=== PATIENT | male | born 1960 | race Caucasian/White ===

== ENCOUNTER 2017-01-25 14:44 | Inpatient (IN) ==
--- NOTE | 2017-01-25 15:56 | Emergency Department Note ---
Disposition Clinical Impression: Suicidal ideation Depression Qualifiers: Depression Type: unspecified Qualified Code(s): F32.9 - Major depressive disorder, single episode, unspecified Disposition: Admitted As Inpatient Psych HPI - General Chief Complaint: ED Psychiatric Symptoms Stated Complaint: SI, Depression Time Seen by Provider: 01/25/17 15:51 Source: patient Mode of arrival: ambulatory Limitations: no limitations Nursing Notes Reviewed: Yes Vital Signs Reviewed: Yes - History of Present Illness HPI Narrative: 56-year-old male who comes in complaining of depression and suicidal ideation. Patient does have a history of depression and he stopped his medications for 5 years ago. Patient had been on Xanax also for sleep and hasn't had any of that for about 5 months he says. Says he feels depressed with suicidal ideation. Pt complaint: suicidal ideation, feels depressed If medical clearance, reason: psychiatric condition Onset (ago): day(s) Duration: constant History of similar episodes: Yes Improves with: none Worsens with: none Context: significant life stressor Alleged intoxication: No Associated Psychiatric Symptoms: depression, suicidal ideation Associated symptoms: Reports: denies other symptoms Traumatic symptoms: denies traumatic injury Treatments prior to arrival: none - Related Data Home Medications Medication Instructions Recorded Confirmed Albuterol Sulfate [Proair Hfa] 2 puff IH Q4H PRN 01/25/17 01/25/17 Gabapentin [Neurontin] 600 mg PO TID 01/25/17 01/25/17 Omeprazole [PriLOSEC] 20 mg PO DAILY PRN 01/25/17 01/25/17 Oxycodone HCl/Acetaminophen 1 each PO BID PRN 01/25/17 01/25/17 [Percocet 10-325 mg Tablet] Previous Rx's Medication Instructions Recorded FLUoxetine HCl [Prozac] 20 mg PO DAILY #30 capsule 01/27/17 Allergies Allergy/AdvReac Type Severity Reaction Status Date / Time acetaminophen [From Vicodin] Allergy Nausea Verified 01/25/17 15:01 celecoxib [From Celebrex] Allergy Hives Verified 01/25/17 15:01 hydrocodone [From Vicodin] Allergy Nausea Verified 01/25/17 15:01 Constitutional: Denies: fever, chills, weakness, weight change Eyes: Denies: eye pain, eye discharge, vision change ENT ED: Denies: ear pain, throat pain, dental pain, hearing loss, epistaxis, congestion, dysphagia Cardiovascular: Denies: chest pain, palpitations, dyspnea on exertion, edema, syncope Respiratory: Denies: cough, dyspnea, wheezes, hemoptysis, stridor Gastrointestinal: Denies: abdominal pain, nausea, vomiting, diarrhea, constipation, hematemesis, melena, hematochezia Genitourinary: Denies: urgency, dysuria, frequency, hematuria Musculoskeletal: Denies: back pain, neck pain, arthralgia, myalgia Integumentary: Denies: rash, abrasion, lesions Neurological: Denies: headache, weakness, numbness, paresthesias, confusion, abnormal gait, vertigo Psychiatric: Reports: depression, suicidal thoughts. Denies: anxiety, homicidal thoughts, auditory hallucinations, visual hallucinations Endocrine: Denies: fatigue Hematological/Lymphatic: Denies: easy bleeding, easy bruising Allergic/Immunologic: Denies: facial swelling, urticaria Past Medical History - Past Medical History Medical history: Reports: GERD, hyperlipidemia, hypertension Surgical history: Reports: herniorrhaphy, orthopedic, other (Shoulder surgery) Psychiatric history: Reports: no psych history - Social History Smoking Status: Current every day smoker Smokeless Tobacco Status: No Alcohol use: Reports: none Drug use: Reports: none Physical Exam - General Limitations: no limitations General appearance: alert - Head Head exam: atraumatic, normocephalic, normal inspection - Eye Eye exam: Present: normal appearance, PERRL, EOMI - ENT ENT exam: normal exam, normal oropharynx, mucous membranes moist - Neck Neck exam: Present: normal inspection, full ROM, trachea midline - Chest Chest inspection: Present: normal inspection, symmetric chest wall rise - Cardiovascular Cardiovascular exam: Present: regular rate, normal rhythm, normal heart sounds - Abdominal Exam Abdominal exam: Present: soft, Non-Tender. Absent: tenderness, distention, guarding, rebound, rigidity - Extremities Exam Extremities exam: Present: normal inspection, full ROM. Absent: tenderness, pedal edema - Expanded Lower Extremity Exam Neurovascular/Tendon exam: Absent: motor deficit, sensory deficit, tendon deficit Gait: observed and normal - Back Exam Back exam: Present: normal inspection, full ROM. Absent: tenderness - Neurological Exam Neurological exam: Present: alert, oriented X3 - Psychiatric Psychiatric exam: Present: normal affect, normal mood - Skin Skin exam: Present: warm, dry, intact, normal color Course Vital Signs Temperature 98.1 F 01/25/17 14:57 Pulse Rate 62 01/25/17 14:57 Respiratory Rate 16 01/25/17 14:57 Blood Pressure 157/84 01/25/17 14:57 O2 Sat by Pulse Oximetry 96 01/25/17 14:57 Temperature 98.7 F 01/27/17 08:46 Pulse Rate 67 01/27/17 08:46 Respiratory Rate 16 01/27/17 08:46 Blood Pressure 107/75 01/27/17 08:46 O2 Sat by Pulse Oximetry 97 01/25/17 16:17 Oxygen Delivery Oxygen Delivery Room Air Psych - Lab Data Result diagrams: 01/25/17 16:09 01/25/17 16:09 Lab Results 01/25/17 01/25/17 01/25/17 Range/Units 16:00 16:00 16:09 WBC 8.8 (4.3-11.1) K/mcL RBC 5.03 (4.19-5.50) M/mcL Hgb 15.5 (12.9-16.9) g/dL Hct 45.9 (37.5-50.1) % MCV 91.3 (83.0-100.0) fL MCH 30.8 (28.0-33.3) pg MCHC 33.8 (31.6-35.5) g/dL RDW 12.1 (11.5-14.5) % Plt Count 273 (140-400) K/mcL MPV 10.4 (9.4-12.4) fL Immature Gran % 0.3 (0-4) % Seg Neutrophils % 50.6 % Lymphocytes % 36.0 % Monocytes % 9.5 % Eosinophils % 2.8 % Basophils % 0.8 % Neutrophils # 4.5 (1.6-8.9) K/mcL Lymphocytes # 3.2 (0.6-4.6) K/mcL Monocytes # 0.8 (0.0-1.3) K/mcL Eosinophils # 0.3 (0.0-0.6) K/mcL Basophils # 0.1 (0.0-0.2) K/mcL Sodium (136-145) mEq/L Potassium (3.5-4.5) mEq/L Chloride (98-109) mEq/L Carbon Dioxide (19-29) mEq/L BUN (8-26) mg/dL Creatinine (0.72-1.25) mg/dL Est GFR ( Amer) (> 60) Est GFR (Non-Af Amer) (> 60) BUN/Creatinine Ratio (6-26) Glucose (70-99) mg/dL Calculated Osmolality (280-300) Calcium (8.6-10.8) mg/dL Urine Color Yellow (Yellow) Urine Clarity Clear (Clear) Urine pH 6.0 (5.0-8.0) pH Units Ur Specific [place] 1.028 H (1.010-1.025) Urine Protein Negative (Neg-Trace) mg/dL Urine Glucose (UA) 100 H (Normal) mg/dL Urine Ketones Negative (Negative) mg/dL Urine Blood Negative (Negative) Urine Nitrite Negative (Negative) Urine Bilirubin Negative (Negative) Urine Urobilinogen Normal (Normal) mg/dL Ur Leukocyte Esterase Negative (Negative) Salicylates (15-30) mg/dL Urine Opiates Screen Positive H (Yzwpoz=015) ng/mL Acetaminophen (10-30) mcg/mL Ur Barbiturates Screen Negative (Mzmibt=284) ng/mL Ur Phencyclidine Scrn Negative (Cutoff=25) ng/mL Ur Amphetamines Screen Negative (Hxoebj=0910) ng/mL U Benzodiazepines Scrn Negative (Fuvqnu=027) ng/mL Urine Cocaine Screen Negative (Cutoff= 300) ng/mL U Marijuana (THC) Screen Negative (Cutoff = 50) ng/mL Ethyl Alcohol (0-10) mg/dL 01/25/17 Range/Units 16:09 WBC (4.3-11.1) K/mcL RBC (4.19-5.50) M/mcL Hgb (12.9-16.9) g/dL Hct (37.5-50.1) % MCV (83.0-100.0) fL MCH (28.0-33.3) pg MCHC (31.6-35.5) g/dL RDW (11.5-14.5) % Plt Count (140-400) K/mcL MPV (9.4-12.4) fL Immature Gran % (0-4) % Seg Neutrophils % % Lymphocytes % % Monocytes % % Eosinophils % % Basophils % % Neutrophils # (1.6-8.9) K/mcL Lymphocytes # (0.6-4.6) K/mcL Monocytes # (0.0-1.3) K/mcL Eosinophils # (0.0-0.6) K/mcL Basophils # (0.0-0.2) K/mcL Sodium 138 (136-145) mEq/L Potassium 4.1 (3.5-4.5) mEq/L Chloride 103 (98-109) mEq/L Carbon Dioxide 26 (19-29) mEq/L BUN 12 (8-26) mg/dL Creatinine 1.02 (0.72-1.25) mg/dL Est GFR ( Amer) > 60 (> 60) Est GFR (Non-Af Amer) > 60 (> 60) BUN/Creatinine Ratio 12 (6-26) Glucose 103 H (70-99) mg/dL Calculated Osmolality 286 (280-300) Calcium 8.9 (8.6-10.8) mg/dL Urine Color (Yellow) Urine Clarity (Clear) Urine pH (5.0-8.0) pH Units Ur Specific [place] (1.010-1.025) Urine Protein (Neg-Trace) mg/dL Urine Glucose (UA) (Normal) mg/dL Urine Ketones (Negative) mg/dL Urine Blood (Negative) Urine Nitrite (Negative) Urine Bilirubin (Negative) Urine Urobilinogen (Normal) mg/dL Ur Leukocyte Esterase (Negative) Salicylates < 5.0 L (15-30) mg/dL Urine Opiates Screen (Keqmhx=026) ng/mL Acetaminophen 4.0 L (10-30) mcg/mL Ur Barbiturates Screen (Fwtowx=704) ng/mL Ur Phencyclidine Scrn (Cutoff=25) ng/mL Ur Amphetamines Screen (Temqwh=2569) ng/mL U Benzodiazepines Scrn (Fpfywd=994) ng/mL Urine Cocaine Screen (Cutoff= 300) ng/mL U Marijuana (THC) Screen (Cutoff = 50) ng/mL Ethyl Alcohol < 10 (0-10) mg/dL Psychiatric Medical Clearance - Medical Clearance Checklist Medical History: No Social History Section defined Current Vitals: Last Vital Signs Temp 98.7 F 01/27/17 08:46 Pulse 67 01/27/17 08:46 Resp 16 01/27/17 08:46 BP 107/75 01/27/17 08:46 Pulse Ox 97 01/25/17 16:17 Abnormal Labs: Abnormal lab results Glucose 103 mg/dL (70-99) H 01/25/17 16:09 Ur Specific [place] 1.028 (1.010-1.025) H 01/25/17 16:00 Urine Glucose (UA) 100 mg/dL (Normal) H 01/25/17 16:00 Salicylates < 5.0 mg/dL (15-30) L 01/25/17 16:09 Urine Opiates Screen Positive ng/mL (Feaalz=200) H 01/25/17 16:00 Acetaminophen 4.0 mcg/mL (10-30) L 01/25/17 16:09 Statement of Medical Clearance: I have evaluated the patient, reviewed diagnostic information, and certify that the patient's medical condition is sufficiently stable that transfer to the psychiatric unit does not pose a significant risk of deterioration.
[2017-01-25 16:07] LABS: Bilirubin,Urine Negative (Negative); Blood,Urine Negative (Negative); Clarity,Urine Clear (Clear); Color,Urine Yellow (Yellow); Glucose,Urine (UA) 100 mg/dL (Normal); Ketones,Urine Negative (Negative); Leukocyte Esterase,Urine Negative (Negative); Nitrite,Urine Negative (Negative); Protein,Urine Negative (Neg-Trace); Specific Gravity,Urine 1.028 (1.010-1.025); Urobilinogen,Urine Normal (Normal)
[2017-01-25 16:16] LABS: Amphetamine Screen,Urine Negative ng/mL (Cutoff=1000); Barbiturate Screen,Urine Negative ng/mL (Cutoff=200); Benzodiazepines Screen,Urine Negative ng/mL (Cutoff=200); Cannabinoid Screen,Urine Negative ng/mL (Cutoff = 50); Cocaine Screen,Urine Negative ng/mL (Cutoff= 300); Opiate Screen,Urine Positive ng/mL (Cutoff=300); Phencyclidine Screen,Urine Negative ng/mL (Cutoff=25)
[2017-01-25 16:32] LABS: Basophils # 0.1 K/mcL (0.0-0.2); Basophils % 0.8 %; Eosinophils # 0.3 K/mcL (0.0-0.6); Eosinophils % 2.8 %; Hematocrit 45.9 % (37.5-50.1); Hemoglobin 15.5 g/dL (12.9-16.9); Immature Granulocytes % 0.3 % (0-4); Lymphocytes # 3.2 K/mcL (0.6-4.6); Mean Corpuscular HGB Conc 33.8 g/dL (31.6-35.5); Mean Corpuscular Hemoglobin 30.8 pg (28.0-33.3); Mean Corpuscular Volume 91.3 fL (83.0-100.0); Mean Platelet Volume 10.4 fL (9.4-12.4); Monocytes # 0.8 K/mcL (0.0-1.3); Monocytes % 9.5 %; Neutrophils # 4.5 K/mcL (1.6-8.9); Platelet Count 273 K/mcL (140-400); Red Blood Count 5.03 M/mcL (4.19-5.50); Red Cell Distribution Width 12.1 % (11.5-14.5); Segmented Neutrophils % 50.6 %
[2017-01-25 16:33] LABS: BUN/Creatinine Ratio 12 (6-26); Blood Urea Nitrogen 12 mg/dL (8-26); Calcium 8.9 mg/dL (8.6-10.8); Carbon Dioxide 26 mEq/L (19-29); Chloride 103 mEq/L (98-109); Glucose 103 mg/dL (70-99); Osmolality,Calculated 286 (280-300); Potassium 4.1 mEq/L (3.5-4.5); Sodium 138 mEq/L (136-145); eGFR For African Americans > 60 (> 60); eGFR For Non-African Americans > 60 (> 60)
[2017-01-25 16:34] LABS: Ethanol < 10 mg/dL (0-10); Salicylate < 5.0 mg/dL (15-30)
[2017-01-25] MEDS ORDERED: hydrOXYzine pamoate 25 MG CAPSULE PO PRN (20:01)
[2017-01-25] MEDS ORDERED: MOM Conc 10 ML UD.LIQ PO PRN (20:01)
[2017-01-25] MEDS ORDERED: Mag Hydrox/Al Hydrox/Simeth 30 ML UDC PO PRN (20:01)
[2017-01-25] MEDS ORDERED: Haloperidol Lactate 5 MG/ML VIAL IM PRN (20:01)
[2017-01-25] MEDS ORDERED: *HR* LORazepam 1 MG TABLET PO PRN (20:01)
[2017-01-25] MEDS ORDERED: *HR* LORazepam 2 MG/ML VIAL IM PRN (20:01)
[2017-01-25] MEDS: traZODone 50 MG TABLET PO PRN (21:15)
[2017-01-25] MEDS: Gabapentin 300 MG CAPSULE PO SCH (21:16)
[2017-01-25] MEDS: *HR* OxyCODONE/APAP 10/325 TABLET PO PRN (21:16)
[2017-01-26] MEDS: Gabapentin 300 MG CAPSULE PO SCH ×3 (08:18→20:43)
--- NOTE | 2017-01-26 10:09 | Psychiatry History & Physical ---
Date of Encounter: 01/26/17 Time of Encounter: 10:05 History of Present Illness Patient Stated Chief Complaint: Suicidal ideation Medicare Admission Attestation: For traditional Medicare patients the provided hospital inpatient services are reasonable and necessary and in the case of services not specified as inpatient -only under 42 CFR 419.22 (n), that they are appropriately provided as inpatient services in accordance 42 CFR 412.3. For Critical Access Hospital the patient may reasonably be expected to be discharged or transferred to a hospital within 96 hours after admission to the Critical Access Hospital. Admitted From: Emergency Dept History of Present Illness: Mr. Valerio is a 56 year old male admitted from the emergency room for depression and suicidal ideation. Patient is stressed out by financial problems and unemployment and living situation with family. He was hospitalized in 2009 for similar episodes but did not follow-up or take medication afterwards. Patient complained of poor sleep, depressed moods, poor motivation, low energy and feeling of hopelessness and suicidal ideation. 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 HE DENIES ANY USE OF DRUGS OR ALCOHOL AND SHE SMOKE 1 PACK PER DAY CIGARETTES AND SEVERAL CUPS OF COFFEE DAILY. Past Med Surg Social Fam HX - Past Medical History Medical history: arthritis, GERD, hyperlipidemia, hypertension - Past Psychiatric History Psychiatric history: Reports: depression, previous psychiatric hospitalization Past psychiatric history details: Psychiatric hospitalization at [facility] from December 04 2009 to 12/08/2009. Diagnosis major depressive disorder single episode severe with psychotic features discharged on Klonopin , citalopram and trazodone Family psychiatric history: Unknown Family History of Suicide: Unknown - Past Surgical History Surgical History: herniorrhaphy, orthopedic, other - Social History Smoking Status: Current every day smoker Smokeless Tobacco Status: No Alcohol use: none Drug use: none Medications & Allergies Albuterol Sulfate [Proair Hfa] 2 puff IH Q4H PRN 01/25/17 [History] Gabapentin [Neurontin] 600 mg PO TID 01/25/17 [History] Omeprazole [PriLOSEC] 20 mg PO DAILY PRN 01/25/17 [History] Oxycodone HCl/Acetaminophen [Percocet 10-325 mg Tablet] 1 each PO BID PRN [History] Allergies acetaminophen [From Vicodin] Allergy (Verified 01/25/17 15:01) Nausea celecoxib [From Celebrex] Allergy (Verified 01/25/17 15:01) Hives hydrocodone [From Vicodin] Allergy (Verified 01/25/17 15:01) Nausea Review of Systems Psychiatric: Reports: depression, suicidal ideation Mental Status Exam Patient orientation: Yes Person, Yes Time, Yes Place Level of alertness: Alert Patient appearance: Appropriate, Disheveled, Average Behavior: calm, cooperative Psychomotor activity: Normal Eye contact: Maintains Eye Contact Mood description: Depressed, Anxious Affect description: congruent with mood, constricted, anxious Speech pattern: Normal rate, Normal rhythm, Normal tone, Appropriate, Limited Speech volume: Normal Thought process: Linear, Goal Oriented Thought content: Yes Suicidal ideation, No Homicidal ideation, No Overt delusions Perceptual disturbances: No Auditory hallucinations, No Visual hallucinations Attention span: Capable of Sustained Attention Memory description: Grossly Intact Patient reliability: Reliable Historian Intelligence estimate: Average Judgment: Limited Insight: Partial Results - Vital Signs Vital signs: Temp Pulse Resp BP Pulse Ox 98.2 F 53 16 97/67 97 01/26/17 08:12 01/26/17 08:12 01/26/17 08:12 01/26/17 08:12 01/25/17 16:17 - Labs Labs: Laboratory Last Values WBC 8.8 K/mcL (4.3-11.1) 01/25/17 16:09 RBC 5.03 M/mcL (4.19-5.50) 01/25/17 16:09 Hgb 15.5 g/dL (12.9-16.9) 01/25/17 16:09 Hct 45.9 % (37.5-50.1) 01/25/17 16:09 MCV 91.3 fL (83.0-100.0) 01/25/17 16:09 MCH 30.8 pg (28.0-33.3) 01/25/17 16:09 MCHC 33.8 g/dL (31.6-35.5) 01/25/17 16:09 RDW 12.1 % (11.5-14.5) 01/25/17 16:09 Plt Count 273 K/mcL (140-400) 01/25/17 16:09 MPV 10.4 fL (9.4-12.4) 01/25/17 16:09 Immature Gran % 0.3 % (0-4) 01/25/17 16:09 Seg Neutrophils % 50.6 % 01/25/17 16:09 Lymphocytes % 36.0 % 01/25/17 16:09 Monocytes % 9.5 % 01/25/17 16:09 Eosinophils % 2.8 % 01/25/17 16:09 Basophils % 0.8 % 01/25/17 16:09 Neutrophils # 4.5 K/mcL (1.6-8.9) 01/25/17 16:09 Lymphocytes # 3.2 K/mcL (0.6-4.6) 01/25/17 16:09 Monocytes # 0.8 K/mcL (0.0-1.3) 01/25/17 16:09 Eosinophils # 0.3 K/mcL (0.0-0.6) 01/25/17 16:09 Basophils # 0.1 K/mcL (0.0-0.2) 01/25/17 16:09 Sodium 138 mEq/L (136-145) 01/25/17 16:09 Potassium 4.1 mEq/L (3.5-4.5) 01/25/17 16:09 Chloride 103 mEq/L (98-109) 01/25/17 16:09 Carbon Dioxide 26 mEq/L (19-29) 01/25/17 16:09 BUN 12 mg/dL (8-26) 01/25/17 16:09 Creatinine 1.02 mg/dL (0.72-1.25) 01/25/17 16:09 Est GFR ( Amer) > 60 (> 60) 01/25/17 16:09 Est GFR (Non-Af Amer) > 60 (> 60) 01/25/17 16:09 BUN/Creatinine Ratio 12 (6-26) 01/25/17 16:09 Glucose 103 mg/dL (70-99) H 01/25/17 16:09 Calculated Osmolality 286 (280-300) 01/25/17 16:09 Calcium 8.9 mg/dL (8.6-10.8) 01/25/17 16:09 Urine Color Yellow (Yellow) 01/25/17 16:00 Urine Clarity Clear (Clear) 01/25/17 16:00 Urine pH 6.0 pH Units (5.0-8.0) 01/25/17 16:00 Ur Specific [place] 1.028 (1.010-1.025) H 01/25/17 16:00 Urine Protein Negative mg/dL (Neg-Trace) 01/25/17 16:00 Urine Glucose (UA) 100 mg/dL (Normal) H 01/25/17 16:00 Urine Ketones Negative mg/dL (Negative) 01/25/17 16:00 Urine Blood Negative (Negative) 01/25/17 16:00 Urine Nitrite Negative (Negative) 01/25/17 16:00 Urine Bilirubin Negative (Negative) 01/25/17 16:00 Urine Urobilinogen Normal mg/dL (Normal) 01/25/17 16:00 Ur Leukocyte Esterase Negative (Negative) 01/25/17 16:00 Salicylates < 5.0 mg/dL (15-30) L 01/25/17 16:09 Urine Opiates Screen Positive ng/mL (Wdmjlr=190) H 01/25/17 16:00 Acetaminophen 4.0 mcg/mL (10-30) L 01/25/17 16:09 Ur Barbiturates Screen Negative ng/mL (Fmcumx=755) 01/25/17 16:00 Ur Phencyclidine Scrn Negative ng/mL (Cutoff=25) 01/25/17 16:00 Ur Amphetamines Screen Negative ng/mL (Mkrkgh=8268) 01/25/17 16:00 U Benzodiazepines Scrn Negative ng/mL (Jtzjyr=910) 01/25/17 16:00 Urine Cocaine Screen Negative ng/mL (Cutoff= 300) 01/25/17 16:00 U Marijuana (THC) Screen Negative ng/mL (Cutoff = 50) 01/25/17 16:00 Ethyl Alcohol < 10 mg/dL (0-10) 01/25/17 16:09 Assessment and Plan (1) Depression, major, recurrent, moderate Current visit: Yes Status: Acute Plan: Admit inpatient for safety and stabilization, Close observation, Suicide Precautions per unit protocol, Encourage participation in unit milieu, Group Therapy, Monitor sleep, Monitor appetite Additional Plan: We will start patient on fluoxetine 20 mg daily and Klonopin 1 mg at bedtime. Benefits and side effect were discussed with the patient and he is agreeable. We will monitor his response. Risks, benefits, side effects, alternatives discussed w/pt: Yes Patient agreeable to treatment: Yes Estimated Length of Stay (Days): 5
[2017-01-26] MEDS: *HR* OxyCODONE/APAP 10/325 TABLET PO PRN ×2 (10:28→20:46)
[2017-01-26] MEDS: FLUoxetine 20 MG CAPSULE PO SCH (11:04)
[2017-01-26] MEDS: traZODone 50 MG TABLET PO PRN (20:43)
[2017-01-26] MEDS ORDERED: clonazePAM 1 MG TABLET PO SCH (21:00)
[2017-01-27] MEDS: FLUoxetine 20 MG CAPSULE PO SCH (08:12)
[2017-01-27] MEDS: Gabapentin 300 MG CAPSULE PO SCH (08:13)
[2017-01-27 08:46] VITALS: BP 107/75
[2017-01-27] MEDS: *HR* OxyCODONE/APAP 10/325 TABLET PO PRN (09:43)
--- NOTE | 2017-01-27 12:35 | Discharge Summary ---
Date of Encounter: 01/27/17 Time of Encounter: 12:32 Diagnosis - Discharge Diagnosis (1) Depression, major, recurrent, moderate Priority: Primary Status: Acute Medications - Discharge Medications Prescriptions: FLUoxetine HCl [Prozac] 20 mg PO DAILY #30 capsule Albuterol Sulfate [Proair Hfa] 2 puff IH Q4H PRN 01/25/17 [History] Gabapentin [Neurontin] 600 mg PO TID 01/25/17 [History] Omeprazole [PriLOSEC] 20 mg PO DAILY PRN 01/25/17 [History] Oxycodone HCl/Acetaminophen [Percocet 10-325 mg Tablet] 1 each PO BID PRN [History] FLUoxetine HCl [Prozac] 20 mg PO DAILY #30 capsule 01/27/17 [Rx] Allergies acetaminophen [From Vicodin] Allergy (Verified 01/25/17 15:01) Nausea celecoxib [From Celebrex] Allergy (Verified 01/25/17 15:01) Hives hydrocodone [From Vicodin] Allergy (Verified 01/25/17 15:01) Nausea Provider Date of admission: 01/25/17 19:31 Primary care physician: PCP NO Discharging clinician: Roberto Thacker Assessment and Plan - Patient/Caregiver Discharge Instructions Activity: resume usual activities as tolerated Diet: regular diet - Follow up Plan Follow up with: Oumar Iniguez [facility] Josette Carbajal [Outside] - 01/31/17 11:00 am (The above appointment is with Francine Morrow for counseling. Please arrive 15 minutes early to complete paperwork. Please bring your insurance card, proof of income , photo ID and medications in their original bottles. You will also see Frida Hurt, psychiatric prescriber, on 04/18/2017 at 12:30pm. If you are unable to keep any appointment, 24 hour business notice of cancellation is expected. ) Rubén Corrales MD [Non-Partnered Physician] - 02/01/17 10:30 am (The above appointment is with Dr. Corrales. Please bring any medication changes with you to your first appointment.) Functional capacity at discharge: independent ambulation Overall status at discharge: Stable Disposition: Home, Self-Care Hospital Course Hospital course: Mr. Valerio is a 56 year old male admitted for depression and suicidal ideation. For details of the admission please see H&P On the units patient was placed on fluoxetine 20 mg daily and restarted on his medication, he reports that improved sleep, he denies suicidal ideation he does acknowledge his need for treatment and counseling and health and social care teacher was working was having to establish follow-up plans. Patient requested to be discharged to attend the of his aunt in [place]. Patient is discharged in stable condition, nonsuicidal, tolerating medication without side effects. He was advised on cutting down on smoking and caffeine to improve his sleep quality. - Time Spent with Patient Total time spent providing and/or coordinating discharge services: Less than 30 minutes Quality - Multiple Antipsychotics Patient discharged on 2 or more antipsychotic medications: No Procedures - Procedures Procedures: Medication Management, Crisis Stabilization, Supportive Therapy, Group Therapy, Psychoeducational Therapy Mental Status Exam - Mental Status Exam Patient orientation: Yes Person, Yes Time, Yes Place Level of alertness: Alert Patient appearance: Appropriate, Disheveled, Average Behavior: calm, cooperative Psychomotor activity: Normal Eye contact: Maintains Eye Contact Mood description: Depressed, Anxious Affect description: congruent with mood, constricted, anxious Speech pattern: Normal rate, Normal rhythm, Normal tone, Appropriate, Limited Speech Volume: Normal Thought process: Linear, Goal Oriented Thought Content: No Suicidal ideation, No Homicidal ideation, No Overt delusions Perceptual Disturbances: No Auditory hallucinations, No Visual hallucinations Judgment: Limited Insight: Partial
== END 2017-01-27 13:50 | disposition home or self-care (01) | DRG 885 ==
LOC: EMEROO 14:44 → 1ANU 19:31
PROVIDERS: ADMIT Psychiatry & Neurology Psychiatry; ATTEND Psychiatry & Neurology Psychiatry

== ENCOUNTER 2018-08-21 21:48 | Inpatient (IN) ==
--- NOTE | 2018-08-21 23:58 | Anesthesia Evaluation PreOp ---
Date of Encounter: 08/22/18 Time of Encounter: 23:56 - Past History Planned Operation: Exploratory Laparotomy Cardiac History: HTN Pulmonary History: Smoker (40 years), COPD LOSS CONTROL MANAGER History: Other (chronic pain) Other Medical History: GERD Anesthesia History: No Prior Anesthetic Complications, Past Anesthesia Alcohol Use: none Drug use: none Medications and Allergies Albuterol Sulfate [Proair Hfa] 2 puff IH Q4H PRN 01/25/17 [History] Gabapentin [Neurontin] 600 mg PO TID 01/25/17 [History] Omeprazole [PriLOSEC] 20 mg PO DAILY PRN 01/25/17 [History] Oxycodone HCl/Acetaminophen [Percocet 10-325 mg Tablet] 1 each PO BID PRN [History] Loratadine [Claritin] 10 mg PO DAILY #14 tablet 04/10/17 [Rx] Lisinopril [Zestril] 40 mg PO 08/21/18 [History] 3 Allergy/AdvReac Type Severity Reaction Status Date / Time acetaminophen [From Vicodin] Allergy Nausea Verified 01/25/17 15:01 celecoxib [From Celebrex] Allergy Hives Verified 01/25/17 15:01 hydrocodone [From Vicodin] Allergy Nausea Verified 01/25/17 15:01 Penicillins [PCN] AdvReac Hives Verified 08/21/18 20:23 - Meds/Allergy Pre-op Review Medications Reviewed: Yes Allergies Reviewed: Yes Beta Blockers on Current Med List: No Anesthesia Results - Labs Laboratory Tests 08/21/18 08/21/18 20:50 20:50 WBC 10.6 Hgb 15.3 Hct 44.5 Plt Count 321 Sodium 138 Potassium 4.0 BUN 17 Creatinine 0.96 Anesthesia Exam Vital Signs/O2 Sat, Most Current Temp Pulse Resp BP Pulse Ox 98.0 F 66 15 133/80 98 08/21/18 23:21 08/21/18 23:21 08/21/18 23:21 08/21/18 23:21 08/21/18 23:21 Height: 6'/1.83m Weight: 129 lbs/58.8 kg NPO (# of Hours): 6.5 Pain Scale: 7 Pain Scale Used: Numeric (1 - 10) - HEENT Pupil (Motor): EOMI Mallampati: II Teeth: Missing, Poor dentition Denture Type: Upper: Complete Oral Opening: Greater than 3 - LOSS CONTROL MANAGER LOC: Oriented LOSS CONTROL MANAGER Motor: Normal RUE, Normal LUE, Normal RLE, Normal LLE, Normal Face LOSS CONTROL MANAGER Sensory: Normal: RUE, LUE, RLE, LLE, Face - Cardiac Rhythm: Regular Murmur: None - Pulmonary Breath Sounds: bilateral Clear Respiratory Effort: Symmetrical Anesthesia Assess/Plan ASA Score: 2, E Modified [place] Scale for Level of Consciousness: Cooperative, oriented, and tranquil Anesthetic Plan: General Monitoring Plan: Standard Monitors Recovery Plan: PACU
--- NOTE | 2018-08-22 00:09 | General Surg History&Physical ---
Date of Encounter: 08/22/18 Time of Encounter: 00:05 Assessment and Plan (1) Colon obstruction Current Visit: Yes Status: Acute The assessment and plan as outlined above was discussed with the patient and/or family members who expressed understanding and agreement. All questions were answered. The patient has a completely obstructed colon with pneumatosis in the wall and pending perforation secondary to obstruction. Level of obstruction appears to be splenic flexure. He will be taken to the operating room on an emergent basis for Renee's procedure History of Present Illness Chief complaint: Abdominal pain and abnormal CAT scan HPI: Mr. Valerio is a 58 year old male Who presented to the [facility] emergency room with a several day history of progressive abdominal pain. He has nausea and vomiting. He states that he has lost at least 5 pounds perhaps more. He has been unable to eat for several days. He has had progressive abdominal discomfort and now has severe intra- abdominal pain sought evaluation in the emergency room several days ago and constipation was diagnosed. He was given MiraLAX. This failed to resolve the problem. The sought evaluation at the [facility] emergency room and a CAT scan demonstrated small bowel obstruction and colon obstruction with what appears to be a: Mass at the splenic lecture. The right colon was massively dilated and has pneumatosis in the wall. Free air was diagnosed on CAT scan. He now presents in transfer within acute abdomen and colon obstruction. I personally reviewed the CAT scan images and agree with the finding of splenic flexure obstruction. Past Med Surg Social Fam HX - Past Medical History Medical history: COPD, GERD, hyperlipidemia, hypertension, other Additional medical history: chronic pain Psychiatric history: no psych history - Past Surgical History Surgical History: herniorrhaphy, orthopedic, other (Shoulder surgery) Additional surgical history: Neck surgery, shoulder replacement, hernia repair - Social History Smoking Status: Current every day smoker Smokeless Tobacco Status: No Alcohol use: none Drug use: none Medications and Allergies Albuterol Sulfate [Proair Hfa] 2 puff IH Q4H PRN 01/25/17 [History] Gabapentin [Neurontin] 600 mg PO TID 01/25/17 [History] Omeprazole [PriLOSEC] 20 mg PO DAILY PRN 01/25/17 [History] Oxycodone HCl/Acetaminophen [Percocet 10-325 mg Tablet] 1 each PO BID PRN [History] Loratadine [Claritin] 10 mg PO DAILY #14 tablet 04/10/17 [Rx] Lisinopril [Zestril] 40 mg PO 08/21/18 [History] 3 Allergy/AdvReac Type Severity Reaction Status Date / Time acetaminophen [From Vicodin] Allergy Nausea Verified 01/25/17 15:01 celecoxib [From Celebrex] Allergy Hives Verified 01/25/17 15:01 hydrocodone [From Vicodin] Allergy Nausea Verified 01/25/17 15:01 Penicillins [PCN] AdvReac Hives Verified 08/21/18 20:23 Review of Systems All systems PM: reviewed and no additional remarkable complaints except as stated All systems PM: The remainder of the systems were reviewed and are negative The patient is very stoic. He does not report any rectal bleeding or changes in bowel habits. He does have a 5-10 pound weight loss. He has a history of smoking. General Surgery Exam Initial Vital Signs Temp Pulse Resp BP Pulse Ox 98.0 F 66 15 133/80 98 08/21/18 23:21 08/21/18 23:21 08/21/18 23:21 08/21/18 23:21 08/21/18 23:21 - General physical appearance severe pain, chronically ill, other (He appears poorly nourished) - Neck no masses, no bruits, trachea midline, no lymphadectomy, no venous distension - Respiratory wheezing: bilateral (Decreased air motion) - Cardiovascular Cardiovascular exam: Present: RRR, no murmurs/rubs/gallops - Abdomen Abdomen general surgery: Present: guarding, rebound Abdominal Tenderness: Present: diffusely (Acute abdomen) - Neurologic Present: CN 2-12 grossly intact, normal coordination, normal sensation - Psychiatric Psychiatric general surgery: Present: appropriate, oriented to person, oriented to place, oriented to time, speech is normal, memory intact Results - Labs All other labs normal. - Imaging CT scan - abdomen: image reviewed (I personally reviewed the CAT scan of the abdomen. Findings are consistent with colon obstruction at the splenic flexure level)
[2018-08-22] MEDS ORDERED: Lidocaine -MPF 2% 2 ML VIAL ONE (00:10)
[2018-08-22] MEDS ORDERED: *HR* Rocuronium Bromide 50 MG/5 ML VIAL ONE (00:10)
[2018-08-22] MEDS ORDERED: *HR* Midazolam HCl 2 MG/2 ML VIAL ONE (00:10)
[2018-08-22] MEDS ORDERED: *HR* FentaNYL (PF) 100 MCG/2 ML VIAL ONE (00:10)
[2018-08-22] MEDS ORDERED: *HR* Propofol 200 MG/20 ML VIAL IVP ONE (00:10)
[2018-08-22] MEDS ORDERED: *HR* Succinylcholine 200 MG/10 ML VIAL IVP ONE (00:10)
[2018-08-22] MEDS ORDERED: CefOXitin 1,000 MG VIAL ONE (00:15)
[2018-08-22] MEDS ORDERED: *HR* FentaNYL (PF) 100 MCG/2 ML VIAL IVP PRN (00:30)
[2018-08-22] MEDS ORDERED: Albuterol 2.5 MG/3 ML NEBULIZER ONE (00:38)
[2018-08-22] MEDS ORDERED: Albuterol 2.5 MG/3 ML NEBULIZER IH ONE (00:39)
[2018-08-22] MEDS ORDERED: CefOXitin 2,000 MG VIAL ONE (00:44)
[2018-08-22] MEDS ORDERED: *HR* PHENYLEPHRINE 1,000 MCG/10 ML SYRINGE IVP ONE (01:56)
[2018-08-22] MEDS ORDERED: Neostigmine Methylsulfate 3 MG/3 ML SYRINGE ONE (01:58)
[2018-08-22] MEDS ORDERED: Ondansetron 4 MG/2 ML VIAL ONE (02:07)
[2018-08-22] MEDS ORDERED: Dexamethasone 4 MG/ML VIAL ONE (02:07)
[2018-08-22] MEDS ORDERED: *HR* Morphine 10 MG/ML VIAL ONE (02:09)
--- NOTE | 2018-08-22 02:24 | Operative Note ---
Date of procedure: 08/22/18 Pre-op diagnosis: Colon obstruction Post-op diagnosis: other (Splenic colon mass causing colon obstruction) Procedure: #1 transverse colon resection with colostomy #2 takedown splenic flexure Anesthesia: ROSITA Surgeon: Cuong Soto Was there an clinical research assistant present: No Estimated blood loss (cc): 25 Specimen: Distal transverse and descending colon Condition: stable Disposition: PACU Procedure in Detail: After informed consent the patients taking major operating suite placed in supine position given adequate general endotracheal anesthesia. The abdomen is prepped and draped in sterile fashion utilizing ChloraPrep standard draping techniques. Timeout was taken and the patient is identified. Made a midline incision into the abdomen. The colon was markedly distended right side and transverse colon. There was a circumferential totally obstructing mass at the splenic flexure. There is a good deal of transudate ascites in the abdomen this was suctioned. I saw no evidence of free air. The liver was free of any evidence of metastatic disease. I divided the omentum off the greater curvature. I completely mobilized the splenic flexure dividing the attachments between the colon and colonic mesentery and the spleen. This allowed me to dissected along the pancreas inferior border until her reach the middle colic vessels. The middle colic vessels were preserved. I divided the transverse colon on the left side of the middle colic vessels. This allowed me to mobilize the splenic flexure completely. I divided the lateral attachments to the colon and mobilized down to the descending sigmoid junction. The colon was divided at this point. I maintained the blood supply of the inferior mesenteric artery. I skeletonized the mesentery all the way to the small bowel mesentery to maximize the amount of lymphatic tissue. The colon was then divided at the descending sigmoid junction. No traction stitches were placed. The colon specimen was removed. Total blood loss was 25 mL. I performed some additional mobilization on the transverse colon to allow for colostomy formation in the left upper quadrant I excised a circular portion of skin and made a cross shaped incision in the rectus sheath. I was able to pass 3 fingers through the opening. The dilated colon was brought through this opening and secured with a Kylah clamp. The abdomen was irrigated with copious amounts of antibiotic containing solution. I could find no gross evidence of metastatic disease. Midline was closed with looped 0 PDS. The skin was closed with skin clips. The colostomy was matured with interrupted 3. stitches of 2-0 Vicryl. 12 stitches were used. The ostomy had excellent blood supply. He tolerated the procedure well but required additional fluid to maintain urine output and blood pressure. Transferred to recovery in stable condition.
[2018-08-22] MEDS: *HR* HYDROmorphone (PF) 1 MG/ML SYRINGE IVP PRN ×4 (02:55→03:22)
[2018-08-22] MEDS ORDERED: *HR* Promethazine 25 MG/ML VIAL ONE (03:02)
[2018-08-22] MEDS: *HR* Promethazine 25 MG/ML VIAL IVP PRN ×2 (03:05→03:20)
--- NOTE | 2018-08-22 03:25 | Anesthesia Evaluation Post Op ---
Date of Encounter: 08/22/18 Time of Encounter: 03:24 - Vital Signs Vital Signs: Vital Signs/O2 Sat, Most Current Temp Pulse Resp BP Pulse Ox 98.4 F 75 20 135/76 97 08/22/18 03:06 08/22/18 03:06 08/22/18 03:06 08/22/18 03:06 08/22/18 03:06 - Lungs Lungs: Clear Ascult./Percussion - Airway Airway: Non-obstructed - Cardiovascular Regular Rate - Mental Status Mental Status: Asleep with brisk response to light stimulation - Pain Pain Scale: 5 Pain Scale used: Numeric (1 - 10) - Nausea Vomiting Nausea Vomiting: Responds to treatment with IV Meds - Hydration Hydration: NPO, Stein catheter - Discharge PostOp Status: Transfer Patient to floor
[2018-08-22] MEDS ORDERED: Ondansetron 4 MG/2 ML VIAL IVP PRN (04:05)
[2018-08-22] MEDS ORDERED: *HR* Metoprolol 5 MG/5 ML VIAL IVP PRN (04:05)
[2018-08-22] MEDS: OXYCODONE Oral CONC 10 MG/0.5 ML ORAL.SYG SL PRN ×3 (04:23→16:03)
[2018-08-22] MEDS: *HR* HYDROmorphone 20 MG/20 ML PCA IVC SCH (04:48)
[2018-08-22] MEDS ORDERED: *HR* Heparin 5,000 UNIT/ML VIAL SQ SCH (06:00)
[2018-08-22] MEDS: Ringers Solution, Lactated 1,000 ML IVC SCH ×3 (06:27→23:17)
[2018-08-22] MEDS ORDERED: Ipratropium/Albuterol Neb 3 ML IH PRN (07:01)
[2018-08-22] MEDS: cefOXitin 2,000 MG in Water for inj. (sterile) 20 ML 20 ML IVP SCH ×2 (08:55→15:41)
[2018-08-22] MEDS: Pantoprazole 40 MG VIAL IVP SCH (08:55)
--- NOTE | 2018-08-22 10:38 | General Surgery Progress Note ---
<Alpa Harvey - Last Filed: 08/22/18 18:10> Date of Encounter: 08/22/18 Time of Encounter: 10:36 - Assessment and Plan (1) Colon obstruction Current Visit: Yes Status: Acute POD 1 Renee's procedure with Dr Soto; transverse colon resection with ostomy due to colonic mass at splenic flexure. Plan for reversal at some date in future - pathology pending - continue mefoxin 2g q 8hr after current 2 bag finish - continue NG - IVFs - GI prophylaxis - serial abdominal exams - supportive care and pain management - currently with offset printing pressmen pump - wound care consulted for ostomy care due to needing larger size ostomy bag -plan to start routine wound care of incision tomorrow - NPO - nutrition consulted for low BMI and pre-albumin ordered (2) COPD (chronic obstructive pulmonary disease) Current Visit: Yes Status: Acute No signs of exacerbation currently - duonebs prn - inscentive spirometry Qualifiers: COPD type: unspecified COPD Qualified Code(s): J44.9 - Chronic obstructive pulmonary disease, unspecified (3) HTN (hypertension) Current Visit: Yes Status: Acute Metoprolol Qualifiers: Hypertension type: essential hypertension Qualified Code(s): I10 - Essential (primary) hypertension (4) Tobacco abuse Current Visit: Yes Status: Acute - nicotine patch PRN (5) BMI less than 19,adult Current Visit: Yes Status: Acute Mild recent weight loss but expect long course given nature of procedure - nutrition consulted for when diet is progressed Subjective Patient reports: still having pain, flatus, no bowel movement, afebrile Narrative: He has 5 lb weight loss in last month after of friend but he has always been thin.. He was tolerating regular diet until yesterday. He takes percocet 10 bid, gabapentin and amtripline for chronic pain . He uses albuterol inhaler at home for COPD but shortness of breath at baseline. Objective Vital Signs - Last 8 Hours Temp Pulse Resp BP Pulse Ox 08/22/18 10:10 97.8 F 79 15 174/94 97 08/22/18 06:34 97.7 F 82 20 166/88 98 08/22/18 05:50 97.6 F 88 20 158/82 97 08/22/18 04:50 97.7 F 80 20 162/84 96 08/22/18 04:20 98.1 F 87 32 129/78 96 08/22/18 03:50 97.6 F 85 24 150/79 93 08/22/18 03:37 78 18 131/76 98 08/22/18 03:16 74 18 135/79 98 08/22/18 03:06 98.4 F 75 20 135/76 97 08/22/18 02:56 75 20 130/68 92 08/22/18 02:46 76 20 124/74 93 Intake and Output 08/21/18 08/22/18 08/22/18 23:59 07:59 15:59 Intake Total Output Total 550 / 550 250 / 250 Balance -550 / -550 -230 / -230 Intake: IV Fluids Mefoxin 2,000 MG In Water for inj. (sterile) 20 ML @ 300 mls/ hr IVP Q8HR [facility] Rx#:[id number] Oral 0 / 0 Output: Estimated Blood Loss 50 / 50 Urine Amount (Catheter) 150 / 150 Catheter 350 / 350 250 / 250 Gastric Drainage 0 / 0 Other: Weight 58.8 kg - General physical appearance well developed, well nourished, cachectic - ENT normal pinna, normal nares, normal mucosa - Respiratory normal expansion, normal respiratory effort wheezing: bilateral - Cardiovascular Cardiovascular exam: Present: RRR, no murmurs/rubs/gallops - Abdomen Abdomen: Present: soft. Absent: bowel sounds present, distended, guarding, rebound Abdominal Tenderness: LUQ Hernia: none - Incision Incision: Absent: draining (cover by bandage ) Consult Discharge Plan - Plan Referrals: NONE,PCP [Primary Care Provider] - <Cuong Soto - Last Filed: 08/23/18 16:45> - Assessment and Plan (1) Colon obstruction Current Visit: Yes Status: Acute Objective Vital Signs - Last 8 Hours Temp Pulse Resp BP Pulse Ox 08/23/18 15:41 98.4 F 77 16 165/77 96 08/23/18 12:23 98.5 F 83 18 176/91 93 Intake and Output 08/23/18 08/23/18 08/23/18 07:59 15:59 23:59 Intake Total 1729 / 1729 Output Total 0 / 0 Balance 1729 / 1729 Intake: IV Fluids 1669 / 1669 0.9 % Sodium Chloride 1,000 ML 669 / 669 @ 0 mls/hr .ROUTE [facility] Rx#:[id number] Lactated Ringers 1,000 ML @ 125 900 / 900 mls/hr IVC .Q8H [facility] Rx#: [id number] Ofirmev 1,000 mg/100 ml 1,000 100 / 100 mg In 100 ml @ 400 mls/hr IVPB Q6HR [facility] Rx#:[id number] Oral 60 / 60 Output: Urine 0 / 0 Other: Meal npo Blood Glucose* 91 - Labs 08/23/18 04:15 08/23/18 04:15 Diabetes panel 08/23/18 Range/Units 04:15 Sodium 132 L (136-145) mEq/L Potassium 4.4 (3.5-5.1) mEq/L Chloride 99 (98-107) mEq/L Carbon Dioxide 27 (23-29) mEq/L BUN 14 (8-23) mg/dL Creatinine 0.71 (0.70-1.30) mg/dL Glucose 97 (70-105) mg/dL Calcium 8.5 L (8.6-10.3) mg/dL AST 23 (13-39) Units/L ALT 8 (7-52) Units/L Alkaline Phosphatase 58 (34-104) Units/L Albumin 3.2 L (3.5-5.7) g/dL Calcium panel 08/23/18 Range/Units 04:15 Calcium 8.5 L (8.6-10.3) mg/dL Albumin 3.2 L (3.5-5.7) g/dL Pituitary panel 08/23/18 Range/Units 04:15 Sodium 132 L (136-145) mEq/L Potassium 4.4 (3.5-5.1) mEq/L Chloride 99 (98-107) mEq/L Carbon Dioxide 27 (23-29) mEq/L BUN 14 (8-23) mg/dL Creatinine 0.71 (0.70-1.30) mg/dL Glucose 97 (70-105) mg/dL Calcium 8.5 L (8.6-10.3) mg/dL Adrenal panel 08/23/18 Range/Units 04:15 Sodium 132 L (136-145) mEq/L Potassium 4.4 (3.5-5.1) mEq/L Chloride 99 (98-107) mEq/L Carbon Dioxide 27 (23-29) mEq/L BUN 14 (8-23) mg/dL Creatinine 0.71 (0.70-1.30) mg/dL Glucose 97 (70-105) mg/dL Calcium 8.5 L (8.6-10.3) mg/dL Total Bilirubin 0.6 (0.3-1.0) mg/dL AST 23 (13-39) Units/L ALT 8 (7-52) Units/L Alkaline Phosphatase 58 (34-104) Units/L Albumin 3.2 L (3.5-5.7) g/dL - Attending Attestation I examined this patient and my medical decision-making was reviewed with the Resident Physician. I agree with the documented findings, disposition and treatment plan as described except to the extent set forth below. The patient is seen and evaluated with rest and on morning rounds. He has made tremendous progress in his now feeling much better. We will continue nasogastric tube drainage today. Ostomy is pink Cuong Soto MD FACS
[2018-08-22] MEDS: Nicotine 21 MG PATCH.TD24 TD PRN (12:05)
[2018-08-22] MEDS ORDERED: cefOXitin 2,000 MG in Water for inj. (sterile) 20 ML 20 ML IVP SCH (16:00)
[2018-08-22] MEDS: Ketorolac 15 MG/ML VIAL IVP SCH (23:17)
[2018-08-23] MEDS: 0.9 % Sodium Chloride 1,000 ML IVC SCH ×2 (09:00→20:20)
[2018-08-23] MEDS ORDERED: 0.9 % Sodium Chloride 1,000 ML ONE (09:05)
[2018-08-23 11:24] LABS: Basophils % 0.3 %; Eosinophils % 0.3 %; Hematocrit 40.5 % (37.5-50.1); Hemoglobin 13.3 g/dL (12.9-16.9); Immature Granulocytes % 0.8 % (0-4); Immature Platelets 4.3 % (1.1-6.1); Lymphocytes # 1.6 K/mcL (0.6-4.6); Lymphocytes % 13.7 %; Mean Corpuscular HGB Conc 32.8 g/dL (31.6-35.5); Mean Corpuscular Hemoglobin 29.8 pg (28.0-33.3); Mean Corpuscular Volume 90.8 fL (83.0-100.0); Mean Platelet Volume 10.5 fL (9.4-12.4); Monocytes # 1.8 K/mcL (0.0-1.3); Monocytes % 15.6 %; Neutrophils # 7.9 K/mcL (1.6-8.9); Platelet Count 254 K/mcL (140-400); Red Blood Count 4.46 M/mcL (4.19-5.50); Red Cell Distribution Width 12.7 % (11.5-14.5); Segmented Neutrophils % 69.3 %
[2018-08-23] MEDS: *HR* HYDROmorphone 20 MG/20 ML PCA IVC SCH (12:21)
[2018-08-23 12:22] LABS: Alanine Aminotransferase 8 Units/L (7-52); Albumin 3.2 g/dL (3.5-5.7); Albumin/Globulin Ratio 1.5 (1.1-2.2); Alkaline Phosphatase 58 Units/L (34-104); Aspartate Amino Transferase 23 Units/L (13-39); BUN/Creatinine Ratio 20 (6-26); Bilirubin,Total 0.6 mg/dL (0.3-1.0); Blood Urea Nitrogen 14 mg/dL (8-23); Calcium 8.5 mg/dL (8.6-10.3); Carbon Dioxide 27 mEq/L (23-29); Chloride 99 mEq/L (98-107); Globulin 2.2 g/dL (2.4-3.5); Glucose 97 mg/dL (70-105); Osmolality,Calculated 274 (280-300); Potassium 4.4 mEq/L (3.5-5.1); Sodium 132 mEq/L (136-145); Total Protein 5.4 g/dL (6.4-8.9); eGFR For Non-African Americans > 60 (> 60)
[2018-08-23] MEDS: Pantoprazole 40 MG VIAL IVP SCH (12:22)
[2018-08-23] MEDS: Ketorolac 15 MG/ML VIAL IVP SCH ×3 (12:39→18:06)
[2018-08-23] MEDS: Acetaminophen IV 1,000 MG/100 ML INFUS..BTL IVPB SCH ×2 (13:33→18:07)
[2018-08-23] MEDS: Ringers Solution, Lactated 1,000 ML IVC SCH (14:05)
[2018-08-23] MEDS: Gabapentin 300 MG CAPSULE PO SCH ×2 (15:02→20:19)
--- NOTE | 2018-08-23 15:20 | Event Note ---
Date of Encounter: 08/23/18 Time of Encounter: 15:20 Please see hard chart for surgery progress note Spoke with social work and no home health needed on discharge but they will set up POA
[2018-08-23] MEDS ORDERED: 0.9 % Sodium Chloride 1,000 ML IV.SOLN IV ONE (15:24)
[2018-08-23] MEDS ORDERED: Pantoprazole 40 MG VIAL IVC ONE (15:24)
[2018-08-23] MEDS ORDERED: *HR* Metoprolol 5 MG/5 ML VIAL IVP ONE (15:24)
[2018-08-23] MEDS ORDERED: Ketorolac 15 MG/ML VIAL IVP ONE (15:24)
[2018-08-23] MEDS: cefOXitin 2,000 MG in 0.9 % Sodium Chloride Mini Bag 100 ML IVPB SCH (15:53)
[2018-08-23] MEDS: *HR* Heparin 5,000 UNIT/ML VIAL SQ SCH (18:07)
[2018-08-24] MEDS: Ketorolac 15 MG/ML VIAL IVP SCH ×4 (00:09→19:11)
[2018-08-24] MEDS: Acetaminophen IV 1,000 MG/100 ML INFUS..BTL IVPB SCH ×4 (00:09→19:09)
[2018-08-24] MEDS: cefOXitin 2,000 MG in 0.9 % Sodium Chloride Mini Bag 100 ML IVPB SCH ×2 (00:10→08:01)
[2018-08-24 04:55] LABS: Basophils % 0.4 %; Eosinophils # 0.1 K/mcL (0.0-0.6); Eosinophils % 1.4 %; Hematocrit 35.8 % (37.5-50.1); Hemoglobin 12.3 g/dL (12.9-16.9); Immature Granulocytes % 0.1 % (0-4); Lymphocytes % 13.7 %; Mean Corpuscular HGB Conc 34.4 g/dL (31.6-35.5); Mean Corpuscular Hemoglobin 30.4 pg (28.0-33.3); Mean Corpuscular Volume 88.4 fL (83.0-100.0); Mean Platelet Volume 10.1 fL (9.4-12.4); Monocytes # 1.2 K/mcL (0.0-1.3); Monocytes % 16.1 %; Neutrophils # 4.9 K/mcL (1.6-8.9); Platelet Count 215 K/mcL (140-400); Red Blood Count 4.05 M/mcL (4.19-5.50); Red Cell Distribution Width 12.5 % (11.5-14.5); Segmented Neutrophils % 68.3 %
[2018-08-24 05:14] LABS: BUN/Creatinine Ratio 20 (6-26); Blood Urea Nitrogen 15 mg/dL (8-23); Calcium 8.2 mg/dL (8.6-10.3); Carbon Dioxide 27 mEq/L (23-29); Chloride 100 mEq/L (98-107); Glucose 91 mg/dL (70-105); Osmolality,Calculated 278 (280-300); Potassium 3.8 mEq/L (3.5-5.1); Sodium 134 mEq/L (136-145); eGFR For Non-African Americans > 60 (> 60)
[2018-08-24] MEDS: *HR* Heparin 5,000 UNIT/ML VIAL SQ SCH ×2 (06:10→19:10)
--- NOTE | 2018-08-24 07:01 | General Surgery Progress Note ---
<Alpa Harvey - Last Filed: 08/24/18 09:29> Date of Encounter: 08/24/18 Time of Encounter: 06:55 - Assessment and Plan (1) Colon obstruction Current Visit: Yes Status: Acute POD 3 Garcia's [address] Soto; transverse colon resection with ostomy due to colonic mass at splenic flexure. Plan for reversal at some date in future - pathology pending - stop mefoxin - discontinued NG - remove west - IVF 75 - GI prophylaxis - serial abdominal exams - supportive care and pain management -stop remedy developer and stop oxycodone 4 ml q 6 - start perc 10 - toradol IV continued plus restarted home mediations of gabapentin, amitpriline, - continue ostomy care - continue wound care of incision - ambulate tid - start fulls - transfer to PO medications - nutrition consulted for low BMI - social work consulted to establish POA, he decided no need for home health Possible discharge over the weekend pending lcinical cpourse. Follow with Dr Soto in office established to plan for anastomosis and garcia take down in 8-10 weeks . No need for home health referral. (2) COPD (chronic obstructive pulmonary disease) Current Visit: Yes Status: Acute No signs of exacerbation currently - duonebs prn Qualifiers: COPD type: unspecified COPD Qualified Code(s): J44.9 - Chronic obstructive pulmonary disease, unspecified (3) HTN (hypertension) Current Visit: Yes Status: Acute Metoprolol IV as prn - transfer to PO lisinopril Qualifiers: Hypertension type: essential hypertension Qualified Code(s): I10 - Essential (primary) hypertension (4) Tobacco abuse Current Visit: Yes Status: Acute - nicotine patch PRN (5) BMI less than 19,adult Current Visit: Yes Status: Acute Mild recent weight loss but expect long course given nature of procedure - nutrition consulted to advice about supplements Subjective Patient reports: pain is less, flatus, bowel movement (to ostomy), afebrile Objective Vital Signs - Last 8 Hours Temp Pulse Resp BP Pulse Ox 08/24/18 04:03 98.0 F 73 15 160/82 97 08/23/18 23:25 98.2 F 79 16 162/86 96 Intake and Output 08/23/18 08/23/18 08/24/18 15:59 23:59 07:59 Intake Total 2060 500 / 500 100 / 100 Output Total 0 / 0 600 / 600 900 / 900 Balance 2060 -100 / -100 -800 / -800 Intake: IV Fluids 2000 200 / 200 100 / 100 0.9 % Sodium Chloride 1,000 ML 669 / 669 @ 0 mls/hr .ROUTE .[facility] Rx#:[id number] 0.9 % Sodium Chloride 1,000 ML 332 / 332 @ 75 mls/hr IVC .[id number] [facility] Rx #:[id number] Lactated Ringers 1,000 ML @ 125 900 / 900 mls/hr IVC .Q8H [facility] Rx#: [id number] Ofirmev 1,000 mg/100 ml 1,000 100 / 100 100 / 100 100 / 100 mg In 100 ml @ 400 mls/hr IVPB Q6HR [facility] Rx#:[id number] Mefoxin 2,000 MG In 0.9 % 100 / 100 Sodium Chloride (Mini-Bag +) 100 ML @ 300 mls/hr IVPB Q8HR [facility] Rx#:[id number] Oral 60 / 60 300 / 300 Output: Urine 0 / 0 Stool 100 / 100 0 / 0 Catheter 500 / 500 900 / 900 Other: Meal npo Stool Consistency liquid Weight 59.8 kg Patient Weight 08/24/18 23:59 Weight 59.8 kg - General physical appearance well developed, no distress, cachectic - Eyes normal ocular movement - ENT normal pinna, normal nares, normal mucosa, no hearing loss - Respiratory normal expansion, normal respiratory effort, clear to auscultation - Cardiovascular Cardiovascular exam: Present: RRR, no murmurs/rubs/gallops - Abdomen Abdomen: Present: bowel sounds present, soft. Absent: distended, guarding, rebound Abdominal Tenderness: diffusely (mild) Hernia: none - Incision Incision: Present: clean and dry, approximated. Absent: draining, inflamed - Neurologic CN 2-12 grossly intact, normal coordination, normal sensation - Musculoskeletal normal gait, normal posture - Psychiatric oriented to time, oriented to person, oriented to place, speech is normal, memory intact, other (more awake than yesterday) - Labs 08/24/18 04:38 08/24/18 04:38 Diabetes panel 08/23/18 08/24/18 Range/Units 04:15 04:38 Sodium 132 L 134 L (136-145) mEq/L Potassium 4.4 3.8 (3.5-5.1) mEq/L Chloride 99 100 (98-107) mEq/L Carbon Dioxide 27 27 (23-29) mEq/L BUN 14 15 (8-23) mg/dL Creatinine 0.71 0.76 (0.70-1.30) mg/dL Glucose 97 91 (70-105) mg/dL Calcium 8.5 L 8.2 L (8.6-10.3) mg/dL AST 23 (13-39) Units/L ALT 8 (7-52) Units/L Alkaline Phosphatase 58 (34-104) Units/L Albumin 3.2 L (3.5-5.7) g/dL Calcium panel 08/23/18 08/24/18 Range/Units 04:15 04:38 Calcium 8.5 L 8.2 L (8.6-10.3) mg/dL Albumin 3.2 L (3.5-5.7) g/dL Pituitary panel 08/23/18 08/24/18 Range/Units 04:15 04:38 Sodium 132 L 134 L (136-145) mEq/L Potassium 4.4 3.8 (3.5-5.1) mEq/L Chloride 99 100 (98-107) mEq/L Carbon Dioxide 27 27 (23-29) mEq/L BUN 14 15 (8-23) mg/dL Creatinine 0.71 0.76 (0.70-1.30) mg/dL Glucose 97 91 (70-105) mg/dL Calcium 8.5 L 8.2 L (8.6-10.3) mg/dL Adrenal panel 08/23/18 08/24/18 Range/Units 04:15 04:38 Sodium 132 L 134 L (136-145) mEq/L Potassium 4.4 3.8 (3.5-5.1) mEq/L Chloride 99 100 (98-107) mEq/L Carbon Dioxide 27 27 (23-29) mEq/L BUN 14 15 (8-23) mg/dL Creatinine 0.71 0.76 (0.70-1.30) mg/dL Glucose 97 91 (70-105) mg/dL Calcium 8.5 L 8.2 L (8.6-10.3) mg/dL Total Bilirubin 0.6 (0.3-1.0) mg/dL AST 23 (13-39) Units/L ALT 8 (7-52) Units/L Alkaline Phosphatase 58 (34-104) Units/L Albumin 3.2 L (3.5-5.7) g/dL Consult Discharge Plan - Plan Referrals: NONE,PCP [Primary Care Provider] - Cuong Soto MD [Partnered Physician] - 09/04/18 1:40 pm <Cuong Soto - Last Filed: 08/24/18 17:15> - Assessment and Plan (1) Colon obstruction Current Visit: Yes Status: Acute Objective Vital Signs - Last 8 Hours Temp Pulse Resp BP Pulse Ox 08/24/18 14:45 98.2 F 69 16 133/79 97 08/24/18 11:23 97.7 F 68 18 152/86 97 Intake and Output 08/24/18 08/24/18 08/24/18 07:59 15:59 23:59 Intake Total 300 / 300 1460 / 1460 0 / 0 Output Total 900 / 900 650 / 650 225 / 225 Balance -600 / -600 810 / 810 -225 / -225 Intake: IV Fluids 300 / 300 1100 / 1100 0.9 % Sodium Chloride 1,000 ML 1000 / 1000 @ 75 mls/hr IVC .[id number] [facility] Rx #:[id number] Ofirmev 1,000 mg/100 ml 1,000 200 / 200 mg In 100 ml @ 400 mls/hr IVPB Q6HR [facility] Rx#:[id number] Mefoxin 2,000 MG In 0.9 % 100 / 100 100 / 100 Sodium Chloride (Mini-Bag +) 100 ML @ 300 mls/hr IVPB Q8HR [facility] Rx#:[id number] Oral 360 / 360 0 / 0 Output: Urine 0 / 0 225 / 225 Stool 0 / 0 250 / 250 Catheter 900 / 900 400 / 400 Other: Meal Lunch Percent of Meal Consumed 50% Weight 59.8 kg Patient Weight 08/24/18 23:59 Weight 59.8 kg - Labs 08/24/18 04:38 08/24/18 04:38 Diabetes panel 08/24/18 Range/Units 04:38 Sodium 134 L (136-145) mEq/L Potassium 3.8 (3.5-5.1) mEq/L Chloride 100 (98-107) mEq/L Carbon Dioxide 27 (23-29) mEq/L BUN 15 (8-23) mg/dL Creatinine 0.76 (0.70-1.30) mg/dL Glucose 91 (70-105) mg/dL Calcium 8.2 L (8.6-10.3) mg/dL Calcium panel 08/24/18 Range/Units 04:38 Calcium 8.2 L (8.6-10.3) mg/dL Pituitary panel 08/24/18 Range/Units 04:38 Sodium 134 L (136-145) mEq/L Potassium 3.8 (3.5-5.1) mEq/L Chloride 100 (98-107) mEq/L Carbon Dioxide 27 (23-29) mEq/L BUN 15 (8-23) mg/dL Creatinine 0.76 (0.70-1.30) mg/dL Glucose 91 (70-105) mg/dL Calcium 8.2 L (8.6-10.3) mg/dL Adrenal panel 08/24/18 Range/Units 04:38 Sodium 134 L (136-145) mEq/L Potassium 3.8 (3.5-5.1) mEq/L Chloride 100 (98-107) mEq/L Carbon Dioxide 27 (23-29) mEq/L BUN 15 (8-23) mg/dL Creatinine 0.76 (0.70-1.30) mg/dL Glucose 91 (70-105) mg/dL Calcium 8.2 L (8.6-10.3) mg/dL - Attending Attestation I examined this patient and my medical decision-making was reviewed with the Resident Physician. I agree with the documented findings, disposition and treatment plan as described except to the extent set forth below. The patient is seen and evaluated on morning rounds with the resident and the clinical nurse practitioner. The patient is walking in the hallway and has ostomy function. We will advance his diet. Awaiting pathology Cuong Soto MD FACS
[2018-08-24] MEDS: Gabapentin 300 MG CAPSULE PO SCH ×3 (08:00→20:57)
[2018-08-24] MEDS: Lisinopril 20 MG TABLET PO SCH (08:00)
[2018-08-24] MEDS: Pantoprazole 40 MG VIAL IVP SCH (08:01)
[2018-08-24] MEDS: Nicotine 21 MG PATCH.TD24 TD PRN (09:23)
[2018-08-24] MEDS ORDERED: *HR* OxyCODONE/APAP 10/325 TABLET PO PRN (09:33)
[2018-08-24] MEDS: *HR* HYDROmorphone 20 MG/20 ML PCA IVC SCH ×2 (11:33→20:39)
[2018-08-25] MEDS: Acetaminophen IV 1,000 MG/100 ML INFUS..BTL IVPB SCH ×2 (00:23→05:44)
[2018-08-25] MEDS: Ketorolac 15 MG/ML VIAL IVP SCH ×3 (00:24→10:22)
[2018-08-25] MEDS: 0.9 % Sodium Chloride 1,000 ML IVC SCH (01:03)
[2018-08-25 04:28] LABS: Basophils # 0.1 K/mcL (0.0-0.2); Basophils % 0.6 %; Eosinophils # 0.3 K/mcL (0.0-0.6); Eosinophils % 4.1 %; Hematocrit 37.3 % (37.5-50.1); Immature Granulocytes % 0.1 % (0-4); Lymphocytes # 1.1 K/mcL (0.6-4.6); Lymphocytes % 13.6 %; Mean Corpuscular HGB Conc 34.9 g/dL (31.6-35.5); Mean Corpuscular Hemoglobin 30.4 pg (28.0-33.3); Mean Corpuscular Volume 87.1 fL (83.0-100.0); Mean Platelet Volume 10.2 fL (9.4-12.4); Monocytes % 12.5 %; Neutrophils # 5.4 K/mcL (1.6-8.9); Platelet Count 245 K/mcL (140-400); Red Blood Count 4.28 M/mcL (4.19-5.50); Red Cell Distribution Width 12.6 % (11.5-14.5); Segmented Neutrophils % 69.1 %
[2018-08-25 04:46] LABS: BUN/Creatinine Ratio 18 (6-26); Blood Urea Nitrogen 13 mg/dL (8-23); Calcium 8.2 mg/dL (8.6-10.3); Carbon Dioxide 26 mEq/L (23-29); Chloride 99 mEq/L (98-107); Glucose 98 mg/dL (70-105); Osmolality,Calculated 272 (280-300); Potassium 3.7 mEq/L (3.5-5.1); Sodium 131 mEq/L (136-145); eGFR For Non-African Americans > 60 (> 60)
[2018-08-25] MEDS: *HR* Heparin 5,000 UNIT/ML VIAL SQ SCH (05:43)
[2018-08-25] MEDS: Gabapentin 300 MG CAPSULE PO SCH (10:22)
[2018-08-25] MEDS: Pantoprazole 40 MG VIAL IVP SCH (10:22)
[2018-08-25] MEDS: Lisinopril 20 MG TABLET PO SCH (10:22)
[2018-08-25] MEDS: Nicotine 21 MG PATCH.TD24 TD PRN (10:47)
--- NOTE | 2018-08-25 11:01 | Discharge Summary ---
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 Qualified Code(s): G89.3 - Neoplasm related pain (acute) (chronic) General Surgery Exam Initial Vital Signs Temp Pulse Resp BP Pulse Ox 98.0 F 66 15 133/80 98 08/21/18 23:21 08/21/18 23:21 08/21/18 23:21 08/21/18 23:21 08/21/18 23:21 Vital Signs Temp Pulse Resp BP Pulse Ox 08/25/18 11:01 98.0 F 70 16 146/84 96 08/25/18 07:37 97.9 F 66 16 135/83 95 08/25/18 03:02 97.7 F 66 16 159/85 96 08/24/18 23:17 97.9 F 68 16 144/84 93 08/24/18 20:15 98.2 F 67 15 152/89 94 08/24/18 14:45 98.2 F 69 16 133/79 97 Intake and Output 08/24/18 08/25/18 08/25/18 23:59 07:59 15:59 Intake Total 220 / 220 200 / 200 360 / 360 Output Total 325 / 325 650 / 650 400 / 400 Balance -105 / -105 -450 / -450 -40 / -40 Intake: IV Fluids 100 / 100 200 / 200 Ofirmev 1,000 mg/100 ml 1,000 100 / 100 200 / 200 mg In 100 ml @ 400 mls/hr IVPB Q6HR [facility] Rx#:[id number] Oral 120 / 120 0 / 0 360 / 360 Output: Urine 225 / 225 550 / 550 200 / 200 Stool 100 / 100 100 / 100 200 / 200 Other: Meal Dinner Full Breakfast Percent of Meal Consumed 5% 0% Stool Consistency loose Stool Color Brown Weight 61.7 kg Patient Weight 08/25/18 23:59 Weight 61.7 kg VITAL SIGNS: Reviewed. See [facility] GENERAL: In no apparent distress. HEENT: Normocephalic, atraumatic, pupils are equal and reactive, extraocular motions intact, oropharynx is pink and moist, there is no neck adenopathy or JVD noted. CHEST/RESPIRATORY: The thorax is free from signs of trauma. Lung sounds: decreased breath sounds CARDIAC: Regular rate and rhythm. Normal S1 and S2, without murmurs, gallops, or rubs. VASCULAR: No Edema. 2+ peripheral pulses. ABDOMEN: soft, expected postoperative tenderness, active bowel sounds INCISION: Surgical incision is clean, dry, and intact. There are no signs of cellulitis or infection noted. WOUNDS/DRAINS: ostomy functioning as expected, no signs or symptoms of necrosis or infection. MUSCULOSKELETAL: Good range of motion of all major joints. Extremities without clubbing, cyanosis or edema. NEUROLOGIC EXAM: Alert and oriented x 3. Speech normal. Follows commands. PSYCHIATRIC: Mood normal. SKIN: No rash or lesions. - Hospital Course Hospital course: Mr. Valerio is a 58 year old male who presented on 08/22/2018 for colonic obstruction. His He was taken to the operating room on 08/22/2018 where he underwent a transverse colon resection with colostomy, take down of splenic flexure by Dr. Soto. 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 His hospital course has been unremarkable. He has progressed/recovered very well. He is ambulating and voiding without difficulty, tolerating a diet without nausea or vomiting, vital signs stable, he is afebrile. There is output per his colostomy and his family will assist in taking care of the ostomy home. We will begin discharge planning to home with a follow-up in the office on September [address] Soto. - Time Spent with Patient Total time spent providing and/or coordinating discharge services: - Discharge Medications Prescriptions: RX: OxyCODONE/APAP 5/325 [Percocet 5/325 MG] 1 each PO Q6HR PRN 7 Days #14 tablet PRN Reason: Pain Docusate Sodium [Colace] 100 mg PO BID PRN #30 capsule PRN Reason: Constipation RX: Ibuprofen 800 mg PO Q8H PRN #42 tablet PRN Reason: Mild Pain Home Medications: RX: Albuterol Sulfate [Proair Hfa] 2 puff IH Q4H PRN 01/25/17 [History] RX: Gabapentin [Neurontin] 600 mg PO TID 01/25/17 [History] RX: Omeprazole [PriLOSEC] 40 mg PO DAILY PRN 01/25/17 [History] RX: Oxycodone HCl/Acetaminophen [Percocet 10-325 mg Tablet] 1 each PO BID PRN 01/25/17 [History] RX: Loratadine [Claritin] 10 mg PO DAILY #14 tablet 04/10/17 [Rx] RX: Lisinopril [Zestril] 20 mg PO DAILY 08/21/18 [History] RX: Amitriptyline HCl 100 mg PO HS 08/22/18 [History] Docusate Sodium [Colace] 100 mg PO BID PRN #30 capsule 08/25/18 [Rx] RX: Ibuprofen 800 mg PO Q8H PRN #42 tablet 08/25/18 [Rx] RX: OxyCODONE/APAP 5/325 [Percocet 5/325 MG] 1 each PO Q6HR PRN 7 Days #14 tablet 08/25/18 [Rx] Allergies/Adverse Reactions: Allergy/AdvReac Type Severity Reaction Status Date / Time acetaminophen [From Vicodin] Allergy Nausea Verified 01/25/17 15:01 celecoxib [From Celebrex] Allergy Hives Verified 01/25/17 15:01 hydrocodone [From Vicodin] Allergy Nausea Verified 01/25/17 15:01 Penicillins [PCN] AdvReac Hives Verified 08/21/18 20:23 Date of admission: 08/21/18 23:04 Primary care physician: PCP NONE Consults: 08/22/18 10:36 Consult to Wound Care [CONS] Routine Reason for Consult: ostomy care, bag is too small Call Completed: No 08/22/18 10:49 Consult to Nutrition [CONS] Routine Comment: Consulting Provider: NUTRITION Reason for Dietary Consult: PO Supplementation Other:: low BMI, now with ostomy - please follow for when diet is advanced 08/23/18 13:42 Consult to Heavy Equipment Mechanic [CONS] Routine Reason for SW Consult: needs POA no family but close friends, discharge planning with [facility] for ostomy care Discharging clinician: Santosh Ruffin Anticipated date of discharge: 08/25/18 Labs on day of discharge: Labs from last 24 hours 08/25/18 08/25/18 03:52 03:52 WBC 7.8 RBC 4.28 Hgb 13.0 Hct 37.3 L MCV 87.1 MCH 30.4 MCHC 34.9 RDW 12.6 Plt Count 245 MPV 10.2 Immature Gran % 0.1 Seg Neutrophils % 69.1 Lymphocytes % 13.6 Monocytes % 12.5 Eosinophils % 4.1 Basophils % 0.6 Neutrophils # 5.4 Lymphocytes # 1.1 Monocytes # 1.0 Eosinophils # 0.3 Basophils # 0.1 Sodium 131 L Potassium 3.7 Chloride 99 Carbon Dioxide 26 BUN 13 Creatinine 0.72 Est GFR ( Amer) > 60 Est GFR (Non-Af Amer) > 60 BUN/Creatinine Ratio 18 Glucose 98 Calculated Osmolality 272 L Calcium 8.2 L - Patient Status Disposition: Home, Self-Care Condition: Fair Functional capacity at discharge: independent ambulation Overall status at discharge: patient is progressing back to baseline - Discharge Instructions Instructions: Colostomy Care (GEN), Colectomy (DC), Colostomy Creation (DC) Follow Up With: Cuong Soto MD [Partnered Physician] - 09/04/18 1:40 pm NONE,PCP [Primary Care Provider] - Additional Instructions: General Surgical Discharge Instructions 1. No pushing, pulling, or lifting greater than 15 lbs for 2-4 weeks (depending upon procedure). 2. You may shower beginning today, but no tub baths, soaking, or swimming for 2 weeks. 3. You may resume driving when you are off narcotics and are safe to react in a car. 4. Take ibuprofen every 8 hours for discomfort. If this does not relieve discomfort, you may take the as needed Percocet. Take narcotics as directed. Do not take more narcotics then directed and do not share your narcotics with any other person. Do not drink alcohol while on narcotics. 5. Take stool softeners (Colace) while taking narcotics. You may hold for loose stools. 6. Report any fevers greater than 100.5F, increase abdominal discomfort, drainage that looks like pus, increased redness or pain at the surgical site, or any vomiting. 7. Report any pain in the calves, shortness of breath, or rapid heartbeat. 8. Follow-up in the office as directed. 9. If you were prescribed antibiotics, do not stop them without talking to your provider. - Diet and Activity Activity: increase activity as tolerated <Santosh Ruffin - Last Filed: 08/25/18 17:47> General Surgery Exam Initial Vital Signs Temp Pulse Resp BP Pulse Ox 98.0 F 66 15 133/80 98 08/21/18 23:21 08/21/18 23:21 08/21/18 23:21 08/21/18 23:21 08/21/18 23:21 - Hospital Course Hospital course: Mr. Valerio is a 58 year old male - Time Spent with Patient Total time spent providing and/or coordinating discharge services: Date of admission: 08/21/18 23:04 Primary care physician: PCP NONE Consults: 08/22/18 10:36 Consult to Wound Care [CONS] Routine Reason for Consult: ostomy care, bag is too small Call Completed: No 08/22/18 10:49 Consult to Nutrition [CONS] Routine Comment: Consulting Provider: NUTRITION Reason for Dietary Consult: PO Supplementation Other:: low BMI, now with ostomy - please follow for when diet is advanced 08/23/18 13:42 Consult to Heavy Equipment Mechanic [CONS] Routine Reason for SW Consult: needs POA no family but close friends, discharge planning with home health for ostomy care Labs on day of discharge: Labs from last 24 hours 08/25/18 08/25/18 03:52 03:52 WBC 7.8 RBC 4.28 Hgb 13.0 Hct 37.3 L MCV 87.1 MCH 30.4 MCHC 34.9 RDW 12.6 Plt Count 245 MPV 10.2 Immature Gran % 0.1 Seg Neutrophils % 69.1 Lymphocytes % 13.6 Monocytes % 12.5 Eosinophils % 4.1 Basophils % 0.6 Neutrophils # 5.4 Lymphocytes # 1.1 Monocytes # 1.0 Eosinophils # 0.3 Basophils # 0.1 Sodium 131 L Potassium 3.7 Chloride 99 Carbon Dioxide 26 BUN 13 Creatinine 0.72 Est GFR ( Amer) > 60 Est GFR (Non-Af Amer) > 60 BUN/Creatinine Ratio 18 Glucose 98 Calculated Osmolality 272 L Calcium 8.2 L - Attending Attestation patient seen and examined. i have reviewed all labs, imaging, and notes. I agree with the above assessment and plan.
[2018-08-25 11:02] VITALS: BP 146/84
[2018-08-25] MEDS ORDERED: Ibuprofen 800 MG TABLET PO SCH (12:00)
== END 2018-08-25 15:25 | disposition home or self-care (01) | DRG 330 ==
LOC: 3ANU 23:04
PROVIDERS: ADMIT Surgery; ATTEND Surgery

== ENCOUNTER 2019-01-31 06:17 | Inpatient (IN) ==
[~2019-01-31 06:17] MED LIST: cefOXitin 1,000 MG, Sodium Chloride IRRigation 1,000 ML IR ONE
[2019-01-31] MEDS ORDERED: cefOXitin 2,000 MG in Water for inj. (sterile) 20 ML 20 ML IVP ONE (06:44)
[2019-01-31] MEDS ORDERED: Ringers Solution, Lactated 1,000 ML IVC SCH (06:45)
--- NOTE | 2019-01-31 07:02 | Anesthesia Evaluation PreOp ---
Date of Encounter: 01/31/19 Time of Encounter: 07:00 - Past History Planned Operation: Colostomy Reversal Cardiac History: HTN Pulmonary History: Smoker (40 years), COPD LACER AND TIER History: Denies Any Significant HX Other Medical History: GERD, Other (colon CA S/P resection/colostomy) Anesthesia History: No Prior Anesthetic Complications, Past Anesthesia Alcohol Use: none Drug use: none Medications and Allergies Albuterol Sulfate [Proair Hfa] 2 puff IH Q4H PRN 01/25/17 [History] Gabapentin [Neurontin] 600 mg PO TID 01/25/17 [History] Omeprazole [PriLOSEC] 40 mg PO DAILY PRN 01/25/17 [History] Oxycodone HCl/Acetaminophen [Percocet 10-325 mg Tablet] 1 each PO BID PRN 01/25/17 [History] Loratadine [Claritin] 10 mg PO DAILY #14 tablet 04/10/17 [Rx] Lisinopril [Zestril] 20 mg PO DAILY 08/21/18 [History] Amitriptyline HCl 100 mg PO HS 08/22/18 [History] Ibuprofen 800 mg PO Q8H PRN #42 tablet 08/25/18 [Rx] Docusate Sodium [Colace] 100 mg PO BID PRN #30 capsule 09/13/18 [Rx] Allergy/AdvReac Type Severity Reaction Status Date / Time acetaminophen [From Vicodin] Allergy Nausea Verified 12/31/18 14:00 celecoxib [From Celebrex] Allergy Hives Verified 12/31/18 14:00 hydrocodone [From Vicodin] Allergy Nausea Verified 12/31/18 14:00 Penicillins [PCN] AdvReac Hives Verified 12/31/18 14:00 - Meds/Allergy Pre-op Review Medications Reviewed: Yes Allergies Reviewed: Yes Beta Blockers on Current Med List: No Anesthesia Results - Labs Laboratory Tests 12/24/18 01/18/19 01/18/19 09:12 11:15 11:15 WBC 8.0 Hgb 13.6 Hct 40.3 Plt Count 231 Sodium 139 Potassium 4.3 BUN 9 Creatinine 0.95 - Imaging EKG: report reviewed (12/27/2018 SINUS RHYTHM) Anesthesia Exam O2 Sat Height 1.78 m Height 1.78 m Weight 57.606 kg Weight 57.606 kg O2 Sat by Pulse Oximetry 98 O2 Sat by Pulse Oximetry 98 Vital Signs Temp Pulse Resp BP Pulse Ox 98.0 F 76 18 115/77 98 01/31/19 06:51 01/31/19 06:51 01/31/19 06:51 01/31/19 06:51 01/31/19 06:51 Height: 5'10" Weight: 127 lbs NPO (# of Hours): 8 Pain Scale: 0 Pain Scale Used: Numeric (1 - 10) - HEENT Pupil (Motor): EOMI Mallampati: II Teeth: Edentulous Oral Opening: Greater than 3 - LACER AND TIER LOC: Oriented LACER AND TIER Motor: Normal RUE, Normal LUE, Normal RLE, Normal LLE, Normal Face LACER AND TIER Sensory: Normal: RUE, LUE, RLE, LLE, Face - Cardiac Rhythm: Regular Murmur: None - Pulmonary Breath Sounds: bilateral Clear Respiratory Effort: Symmetrical Anesthesia Assess/Plan ASA Score: 3 Level of consciousness: Cooperative, Oriented, Tranquil Anesthetic Plan: General Monitoring Plan: Standard Monitors Recovery Plan: PACU
[2019-01-31] MEDS ORDERED: *HR* Rocuronium Bromide 50 MG/5 ML VIAL ONE ×2 (07:12→09:31)
[2019-01-31] MEDS ORDERED: Lidocaine -MPF 4% 5 ML AMPUL ONE (07:12)
[2019-01-31] MEDS ORDERED: Lidocaine -MPF 2% 2 ML VIAL ONE (07:12)
[2019-01-31] MEDS ORDERED: *HR* Midazolam HCl 2 MG/2 ML VIAL ONE (07:12)
[2019-01-31] MEDS ORDERED: *HR* FentaNYL (PF) 100 MCG/2 ML VIAL ONE (07:12)
[2019-01-31] MEDS ORDERED: *HR* Propofol 200 MG/20 ML VIAL IVP ONE (07:14)
--- NOTE | 2019-01-31 07:15 | History & Physical Report ---
Date of Encounter: 01/31/19 Time of Encounter: 07:15 24 Hour HP Update - Instructions Instructions: If the History and Physical is less than 30 days old and was completed prior to A.M. admission and or procedure and has NOT been updated on calendar day of procedure please complete this update prior to performing procedure. - Update Patient reports changes in Medical Condition: No Changes in examination, assessment, or condition: No Changes in Medication: No Preop tests/diagnostics Reviewed: Yes Surgery Remains Indicated: Yes Consent for Planned Operative Procedure(s) Verified: Yes - Pre-Operative Checklist Preoperative Checklist Indicated: Yes Prophylactic Antibiotic Ordered: Yes Home Medications Include Beta Juan Luis: No Is VTE Prophylaxis Indicated?: Yes
[2019-01-31] MEDS ORDERED: traMADol 50 MG TABLET PO ONE (07:19)
[2019-01-31] MEDS ORDERED: Dexamethasone 4 MG/ML VIAL ONE (07:20)
[2019-01-31] MEDS ORDERED: Ondansetron 4 MG/2 ML VIAL IVP ONE (07:21)
[2019-01-31] MEDS ORDERED: LIDOCAINE 1% PF 2 ML AMPUL ONE (07:22)
[2019-01-31] MEDS ORDERED: Acetaminophen IV 1,000 MG/100 ML INFUS..BTL ONE (07:31)
[2019-01-31] MEDS: Albuterol 2.5 MG/3 ML NEBULIZER IH ONE ×2 (07:31→07:32)
[2019-01-31] MEDS ORDERED: EPHEDrine 50 MG/ML VIAL ONE (08:13)
[2019-01-31] MEDS ORDERED: *HR* PHENYLEPHRINE 1,000 MCG/10 ML SYRINGE IVP ONE (08:16)
[2019-01-31] MEDS ORDERED: *HR* Vasopressin 20 UNIT/ML VIAL ONE (08:40)
[2019-01-31] MEDS ORDERED: Neostigmine Methylsulfate 3 MG/3 ML SYRINGE ONE (08:49)
[2019-01-31] MEDS ORDERED: *HR* HYDROMORPHONE 2 MG/ML VIAL ONE (10:05)
--- NOTE | 2019-01-31 10:18 | Operative Note ---
Date of procedure: 01/31/19 Pre-op diagnosis: Colostomy after colon obstruction Post-op diagnosis: same Procedure: #1 takedown colostomy (handsewn anastomosis) #2 lysis of adhesions for 30 minutes. 3 appendectomy Anesthesia: ROSITA Surgeon: Cuong Soto Was there an inside sales assistant present: Yes Value Engineer: Heidi Pena Estimated blood loss (cc): 25 Specimen: Anastomotic: colon ends. Appendix. Condition: stable Disposition: PACU Procedure in Detail: After informed consent the patients taking major operative suite placed supine position given adequate general endotracheal anesthesia. The abdomen is prepped and draped in sterile fashion utilizing Betadine solution standard draping techniques. Timeout was taken and the patient is identified. I closed the colostomy with a running Prolene stitch. I made a circumferential dissection around the ostomy down to the level of the posterior fascia completely freeing the ostomy from the rectus muscle in the left upper quadrant. The abdomen was entered through the midline. There were adhesions to the anterior abdominal wall in the left upper quadrant. There are also adhesions on the remaining rectal stump. I performed lysis of adhesions for 30 minutes. At the end of the 30 minute period of time transverse colon was completely mobilized on the middle colonic artery pedicle. The sigmoid colon was also completely mobilized. I performed a handsewn anastomosis using 3-0 silk seromuscular stitches and running chromic 3-0 stitch. This gave an excellent technical result. I then tacked the mesentery to the posterior peritoneum. This completely obliterated any on the colon that would allow for internal herniation. At the end of the procedure the appendix oriented directly onto the anastomosis. I felt that this would provide a diagnostic problem if there were future appendicitis or problems with the anastomosis. I decided to perform appendectomy. The mesoappendix was divided between surgical clips. The base of the appendix was divided with staple line using TA 60. This gave an excellent technical result. Abdomen was irrigated with copious amount of antibiotic containing solution. The posterior fascia was closed with interrupted 0 PDS. The anterior fascia was closed with i nterrupted 0 PDS. This completed closure of the colostomy site. The midline was closed with looped 0 PDS. Skin was closed with skin clips she tolerated the procedure well
[2019-01-31] MEDS: *HR* HYDROmorphone (PF) 1 MG/ML SYRINGE IVP PRN ×6 (10:30→11:15)
[2019-01-31] MEDS ORDERED: *HR* HYDROmorphone (PF) 1 MG/ML SYRINGE IVP SCH (11:15)
--- NOTE | 2019-01-31 11:22 | Anesthesia Evaluation Post Op ---
Date of Encounter: 01/31/19 Time of Encounter: 11:22 - Vital Signs Vital Signs: Vital Signs/O2 Sat/Glucose, Most Recent Temp Pulse Resp BP Pulse Ox 97.9 F 68 16 130/70 97 01/31/19 11:11 01/31/19 11:11 01/31/19 11:11 01/31/19 11:11 01/31/19 11:11 - Lungs Lungs: Clear Ascult./Percussion - Airway Airway: Non-obstructed - Cardiovascular Regular Rate - Mental Status Mental Status: Alert & Oriented, Answers Appropriately - Pain Pain Scale: 3 - Nausea Vomiting Nausea Vomiting: Not Present - Hydration Hydration: NPO - Discharge PostOp Status: Transfer Patient to floor
[2019-01-31] MEDS ORDERED: *HR* Metoprolol 5 MG/5 ML VIAL IVP PRN (12:03)
[2019-01-31] MEDS: 0.9 % Sodium Chloride 1,000 ML IVC SCH (13:22)
[2019-01-31] MEDS: *HR* Morphine 30 MG/ 30 ML PCA IVC PRN ×2 (13:22→20:04)
[2019-01-31] MEDS: Albuterol 2.5 MG/3 ML NEBULIZER IH SCH ×2 (15:25→22:34)
[2019-01-31] MEDS: *HR* Heparin 5,000 UNIT/ML VIAL SQ SCH (16:41)
[2019-01-31] MEDS: SODIUM CHLORIDE 0.9% IVPB SCH (16:41)
[2019-01-31] MEDS: CEFOXITIN IVPB SCH (16:41)
[2019-01-31] MEDS ORDERED: *HR* Heparin 5,000 UNIT/ML VIAL SQ SCH (18:00)
[2019-01-31] MEDS: Nicotine 21 MG PATCH.TD24 TD SCH (22:14)
[2019-02-01] MEDS: CEFOXITIN IVPB SCH (00:12)
[2019-02-01] MEDS: SODIUM CHLORIDE 0.9% IVPB SCH (00:12)
[2019-02-01 02:28] LABS: Basophils % 0.1 %; Hematocrit 37.6 % (37.5-50.1); Hemoglobin 12.9 g/dL (12.9-16.9); Immature Granulocytes % 0.4 % (0-4); Lymphocytes % 6.5 %; Mean Corpuscular HGB Conc 34.3 g/dL (31.6-35.5); Mean Corpuscular Hemoglobin 30.7 pg (28.0-33.3); Mean Corpuscular Volume 89.5 fL (83.0-100.0); Mean Platelet Volume 10.2 fL (9.4-12.4); Monocytes # 1.6 K/mcL (0.0-1.3); Neutrophils # 13.3 K/mcL (1.6-8.9); Platelet Count 297 K/mcL (140-400); Red Cell Distribution Width 12.5 % (11.5-14.5)
[2019-02-01 02:50] LABS: BUN/Creatinine Ratio 14 (6-26); Blood Urea Nitrogen 11 mg/dL (8-23); Calcium 8.8 mg/dL (8.6-10.3); Carbon Dioxide 27 mEq/L (23-29); Chloride 103 mEq/L (98-107); Glucose 138 mg/dL (70-105); Osmolality,Calculated 282 (280-300); Potassium 4.2 mEq/L (3.5-5.1); Sodium 135 mEq/L (136-145); eGFR For Non-African Americans > 60 (> 60)
[2019-02-01] MEDS: 0.9 % Sodium Chloride 1,000 ML IVC SCH ×2 (03:00→14:03)
[2019-02-01] MEDS: Albuterol 2.5 MG/3 ML NEBULIZER IH SCH ×4 (03:46→21:56)
[2019-02-01] MEDS: *HR* Heparin 5,000 UNIT/ML VIAL SQ SCH ×2 (05:39→17:00)
[2019-02-01] MEDS: Ondansetron 4 MG/2 ML VIAL IVP PRN ×3 (06:32→18:28)
[2019-02-01] MEDS: *HR* Morphine 30 MG/ 30 ML PCA IVC PRN ×2 (08:00→23:28)
[2019-02-01] MEDS: Lisinopril 20 MG TABLET PO SCH (08:00)
[2019-02-01] MEDS: Pantoprazole 40 MG VIAL IVP SCH (08:00)
--- NOTE | 2019-02-01 08:25 | General Surgery Progress Note ---
<Arma Scott - Last Filed: 02/01/19 15:33> Date of Encounter: 02/01/19 Time of Encounter: 08:09 - Assessment and Plan (1) S/P colostomy takedown Current Visit: Yes Status: Acute -POD 1 for colostomy takedown 2/2 previous transverse colon resection with colostomy after colon obstruction -Appendectomy intraop as within anastomosis site -Postop cefoxitin complete -Leukocytosis at 16 today, afebrile, hemodynamically stable -OIL LEASE OPERATOR for pain control -Stein in place for acute urinary retention overnight with >1L on bladder scan -IS 10x Q1H while awake -Increase time in chair, begin ambulation as tolerated -If continues to have nausea will likely need NGT -Will remain NPO till bowel function begins to return -Continue pain control, antiemetics, GI and DVT prophylaxis (2) HTN (hypertension) Current Visit: No Status: Acute -Hx of HTN -Continue home meds Qualifiers: Hypertension type: essential hypertension Qualified Code(s): I10 - Essential (primary) hypertension Subjective Patient reports: still having pain, pain is less, no flatus, no bowel movement, nausea Objective Vital Signs - Last 8 Hours Temp Pulse Resp BP Pulse Ox 02/01/19 07:26 98.2 F 73 19 166/79 96 02/01/19 03:12 98 F 71 16 148/72 96 Intake and Output 01/31/19 02/01/19 02/01/19 23:59 07:59 15:59 Intake Total 340 / 340 1200 / 1200 Output Total 550 / 550 1350 / 1350 Balance -210 / -210 -150 / -150 Intake: IV Fluids 100 / 100 1100 / 1100 0.9 % Sodium Chloride 1,000 ML 1000 / 1000 @ 75 mls/hr IVC .[id number] [facility] Rx #:[id number] Mefoxin 2,000 MG In 0.9 % 100 / 100 100 / 100 Sodium Chloride 100 ML @ 200 mls/hr IVPB Q8HR [facility] Rx#: [id number] Oral 240 / 240 100 / 100 Output: Urine 700 / 700 Catheter 550 / 550 650 / 650 Other: # Voids 0 Weight 64.9 kg 63.9 kg Patient Weight 02/01/19 23:59 Weight 63.9 kg - General physical appearance well developed, well nourished, no distress - Eyes normal ocular movement - ENT dry mucosa - Neck Neck exam: trachea midline - Respiratory normal expansion, normal respiratory effort, clear to auscultation - Cardiovascular Cardiovascular exam: Present: RRR. Absent: bradycardia, tachycardia, irregular rhythm, murmurs, clicks, rubs, gallop, distant heart sounds, JVD - Abdomen Abdomen: Present: soft, tender. Absent: bowel sounds present, distended, organomegaly, masses, guarding, rebound, rigid - Incision Incision: Present: clean and dry. Absent: draining, red, swollen, inflamed, erythema, purulent, indurated, serous, serosanguinous - Integumentary no rash - Neurologic CN 2-12 grossly intact - Psychiatric speech is normal - Labs 02/01/19 01:52 02/01/19 01:52 Diabetes panel 02/01/19 Range/Units 01:52 Sodium 135 L (136-145) mEq/L Potassium 4.2 (3.5-5.1) mEq/L Chloride 103 (98-107) mEq/L Carbon Dioxide 27 (23-29) mEq/L BUN 11 (8-23) mg/dL Creatinine 0.80 (0.70-1.30) mg/dL Glucose 138 H (70-105) mg/dL Calcium 8.8 (8.6-10.3) mg/dL Calcium panel 02/01/19 Range/Units 01:52 Calcium 8.8 (8.6-10.3) mg/dL Pituitary panel 02/01/19 Range/Units 01:52 Sodium 135 L (136-145) mEq/L Potassium 4.2 (3.5-5.1) mEq/L Chloride 103 (98-107) mEq/L Carbon Dioxide 27 (23-29) mEq/L BUN 11 (8-23) mg/dL Creatinine 0.80 (0.70-1.30) mg/dL Glucose 138 H (70-105) mg/dL Calcium 8.8 (8.6-10.3) mg/dL Adrenal panel 02/01/19 Range/Units 01:52 Sodium 135 L (136-145) mEq/L Potassium 4.2 (3.5-5.1) mEq/L Chloride 103 (98-107) mEq/L Carbon Dioxide 27 (23-29) mEq/L BUN 11 (8-23) mg/dL Creatinine 0.80 (0.70-1.30) mg/dL Glucose 138 H (70-105) mg/dL Calcium 8.8 (8.6-10.3) mg/dL Consult Discharge Plan - Plan Referrals: Rubén Corrales MD [Primary Care Provider] - <Cuong Soto - Last Filed: 02/01/19 17:47> Date of Encounter: 02/01/19 Objective Vital Signs - Last 8 Hours Temp Pulse Resp BP Pulse Ox 02/01/19 16:12 16 94 02/01/19 15:34 98.0 F 84 19 157/83 96 02/01/19 11:39 97.9 F 73 15 146/77 96 02/01/19 10:15 16 94 Intake and Output 02/01/19 02/01/19 02/01/19 07:59 15:59 23:59 Intake Total 1200 / 1200 1000 / 1000 Output Total 1350 / 1350 1300 / 1300 Balance -150 / -150 -300 / -300 Intake: IV Fluids 1100 / 1100 1000 / 1000 0.9 % Sodium Chloride 1,000 ML 1000 / 1000 1000 / 1000 @ 75 mls/hr IVC .[id number] [facility] Rx #:[id number] Mefoxin 2,000 MG In 0.9 % 100 / 100 Sodium Chloride 100 ML @ 200 mls/hr IVPB Q8HR [facility] Rx#: [id number] Oral 100 / 100 Output: Urine 700 / 700 500 / 500 Straight Cath 800 / 800 Catheter 650 / 650 Other: # Voids 0 Weight 63.9 kg Patient Weight 02/01/19 23:59 Weight 63.9 kg - Labs 02/01/19 01:52 02/01/19 01:52 Diabetes panel 02/01/19 Range/Units 01:52 Sodium 135 L (136-145) mEq/L Potassium 4.2 (3.5-5.1) mEq/L Chloride 103 (98-107) mEq/L Carbon Dioxide 27 (23-29) mEq/L BUN 11 (8-23) mg/dL Creatinine 0.80 (0.70-1.30) mg/dL Glucose 138 H (70-105) mg/dL Calcium 8.8 (8.6-10.3) mg/dL Calcium panel 02/01/19 Range/Units 01:52 Calcium 8.8 (8.6-10.3) mg/dL Pituitary panel 02/01/19 Range/Units 01:52 Sodium 135 L (136-145) mEq/L Potassium 4.2 (3.5-5.1) mEq/L Chloride 103 (98-107) mEq/L Carbon Dioxide 27 (23-29) mEq/L BUN 11 (8-23) mg/dL Creatinine 0.80 (0.70-1.30) mg/dL Glucose 138 H (70-105) mg/dL Calcium 8.8 (8.6-10.3) mg/dL Adrenal panel 02/01/19 Range/Units 01:52 Sodium 135 L (136-145) mEq/L Potassium 4.2 (3.5-5.1) mEq/L Chloride 103 (98-107) mEq/L Carbon Dioxide 27 (23-29) mEq/L BUN 11 (8-23) mg/dL Creatinine 0.80 (0.70-1.30) mg/dL Glucose 138 H (70-105) mg/dL Calcium 8.8 (8.6-10.3) mg/dL - Attending Attestation I examined this patient and my medical decision-making was reviewed with the Resident Physician. I agree with the documented findings, disposition and treatment plan as described except to the extent set forth below. The patient is seen and evaluated on morning rounds. Findings were discussed with the resident. I have reviewed the resident's note and find the documentation be accurate. The patient is doing well on postoperative day 1. He has fair pain control on morphine OIL LEASE OPERATOR. He had urinary retention and required Stein catheter placement. Continue supportive care. Cuong Soto MD FACS
[2019-02-01] MEDS: Nicotine 21 MG PATCH.TD24 TD SCH (23:05)
[2019-02-02] MEDS: 0.9 % Sodium Chloride 1,000 ML IVC SCH ×2 (03:28→12:13)
[2019-02-02] MEDS: Albuterol 2.5 MG/3 ML NEBULIZER IH SCH ×4 (03:54→20:46)
[2019-02-02] MEDS: *HR* Heparin 5,000 UNIT/ML VIAL SQ SCH ×2 (05:04→16:51)
[2019-02-02 06:42] LABS: Basophils % 0.2 %; Eosinophils % 0.2 %; Hematocrit 40.5 % (37.5-50.1); Hemoglobin 13.8 g/dL (12.9-16.9); Immature Granulocytes % 0.3 % (0-4); Lymphocytes # 1.7 K/mcL (0.6-4.6); Mean Corpuscular HGB Conc 34.1 g/dL (31.6-35.5); Mean Corpuscular Hemoglobin 30.5 pg (28.0-33.3); Mean Corpuscular Volume 89.6 fL (83.0-100.0); Mean Platelet Volume 10.5 fL (9.4-12.4); Monocytes # 1.4 K/mcL (0.0-1.3); Monocytes % 11.8 %; Neutrophils # 8.9 K/mcL (1.6-8.9); Platelet Count 265 K/mcL (140-400); Red Blood Count 4.52 M/mcL (4.19-5.50); Red Cell Distribution Width 12.6 % (11.5-14.5); Segmented Neutrophils % 73.5 %
[2019-02-02 07:17] LABS: BUN/Creatinine Ratio 15 (6-26); Blood Urea Nitrogen 11 mg/dL (8-23); Calcium 9.3 mg/dL (8.6-10.3); Carbon Dioxide 27 mEq/L (23-29); Chloride 100 mEq/L (98-107); Glucose 90 mg/dL (70-105); Magnesium 1.9 mg/dL (1.6-2.6); Osmolality,Calculated 279 (280-300); Potassium 4.3 mEq/L (3.5-5.1); Sodium 135 mEq/L (136-145); eGFR For Non-African Americans > 60 (> 60)
--- NOTE | 2019-02-02 09:03 | General Surgery Progress Note ---
<TylerAram Riya - Last Filed: 02/02/19 10:33> Date of Encounter: 02/02/19 Time of Encounter: 08:58 - Assessment and Plan (1) S/P colostomy takedown Current Visit: Yes Status: Acute -POD 2 for colostomy takedown 2/2 previous transverse colon resection with colostomy after colon obstruction -Appendectomy intraop as within anastomosis site -Postop cefoxitin complete -Leukocytosis trending down from 16 to 12.1 today, afebrile, hemodynamically stable -MORGUE LIBRARIAN for pain control will be transitioned to PO pain meds today -West in place for acute urinary retention postop with >1L on bladder scan, cath uop good, will likely dc west tomorrow am -IS 10x Q1H while awake -Increase time in chair, begin ambulation as tolerated -Awaiting return of bowel function -Will trial clear liquids today -Continue pain control, antiemetics, GI and DVT prophylaxis (2) HTN (hypertension) Current Visit: No Status: Acute -Hx of HTN -Continue home meds Qualifiers: Hypertension type: essential hypertension Qualified Code(s): I10 - E ssential (primary) hypertension Subjective Patient reports: no new complaints, pain is less, no flatus, no bowel movement, afebrile Objective Vital Signs - Last 8 Hours Temp Pulse Resp BP Pulse Ox 02/02/19 07:54 98.1 F 82 17 163/83 94 02/02/19 03:56 16 92 02/02/19 03:28 83 16 151/86 97 Intake and Output 02/01/19 02/02/19 02/02/19 23:59 07:59 15:59 Intake Total 520 / 520 1000 / 1000 Output Total 1675 / 1675 Balance -1155 / -1155 1000 / 1000 Intake: IV Fluids 520 / 520 1000 / 1000 0.9 % Sodium Chloride 1,000 ML 1000 / 1000 @ 75 mls/hr IVC .[id number] [facility] Rx #:[id number] Output: Catheter 1675 / 1675 Coude 1225 / 1225 Other: Weight 62.2 kg Patient Weight 02/02/19 23:59 Weight 62.2 kg - General physical appearance well developed, well nourished, no distress - Eyes normal ocular movement - ENT dry mucosa - Neck Neck exam: trachea midline - Respiratory normal expansion, normal respiratory effort, clear to auscultation - Cardiovascular Cardiovascular exam: Present: RRR. Absent: bradycardia, tachycardia, irregular rhythm, murmurs, clicks, rubs, gallop, distant heart sounds, JVD - Abdomen Abdomen: Present: bowel sounds present (hypoactive), soft, tender (midline incision site). Absent: distended, organomegaly, masses, guarding, rebound, rigid - Incision Incision: Present: clean and dry. Absent: draining, red, swollen, erythema, purulent, indurated, serous, serosanguinous - Integumentary no rash - Neurologic CN 2-12 grossly intact - Psychiatric speech is normal - Labs 02/02/19 05:38 02/02/19 05:38 Diabetes panel 02/02/19 Range/Units 05:38 Sodium 135 L (136-145) mEq/L Potassium 4.3 (3.5-5.1) mEq/L Chloride 100 (98-107) mEq/L Carbon Dioxide 27 (23-29) mEq/L BUN 11 (8-23) mg/dL Creatinine 0.73 (0.70-1.30) mg/dL Glucose 90 (70-105) mg/dL Calcium 9.3 (8.6-10.3) mg/dL Calcium panel 02/02/19 Range/Units 05:38 Calcium 9.3 (8.6-10.3) mg/dL Phosphorus 3.0 (2.7-4.5) mg/dL Pituitary panel 02/02/19 Range/Units 05:38 Sodium 135 L (136-145) mEq/L Potassium 4.3 (3.5-5.1) mEq/L Chloride 100 (98-107) mEq/L Carbon Dioxide 27 (23-29) mEq/L BUN 11 (8-23) mg/dL Creatinine 0.73 (0.70-1.30) mg/dL Glucose 90 (70-105) mg/dL Calcium 9.3 (8.6-10.3) mg/dL Adrenal panel 02/02/19 Range/Units 05:38 Sodium 135 L (136-145) mEq/L Potassium 4.3 (3.5-5.1) mEq/L Chloride 100 (98-107) mEq/L Carbon Dioxide 27 (23-29) mEq/L BUN 11 (8-23) mg/dL Creatinine 0.73 (0.70-1.30) mg/dL Glucose 90 (70-105) mg/dL Calcium 9.3 (8.6-10.3) mg/dL Consult Discharge Plan - Plan Referrals: Rubén Corrales MD [Primary Care Provider] - <Cuong Soto - Last Filed: 02/02/19 17:06> Date of Encounter: 02/02/19 Objective Vital Signs - Last 8 Hours Temp Pulse Resp BP Pulse Ox 02/02/19 15:58 98.2 F 84 17 125/77 94 02/02/19 15:29 18 94 02/02/19 11:18 98.2 F 85 16 158/91 93 02/02/19 10:00 18 96 02/02/19 09:56 94 Intake and Output 02/02/19 02/02/19 02/02/19 07:59 15:59 23:59 Intake Total 1000 / 1000 Output Total 1800 / 1800 Balance 1000 / 1000 -1800 / -1800 Intake: IV Fluids 1000 / 1000 0.9 % Sodium Chloride 1,000 ML 1000 / 1000 @ 75 mls/hr IVC .[id number] [facility] Rx #:[id number] Output: Urine 900 / 900 Catheter 900 / 900 Other: Weight 62.2 kg Patient Weight 02/02/19 23:59 Weight 62.2 kg - Labs 02/02/19 05:38 02/02/19 05:38 Diabetes panel 02/02/19 Range/Units 05:38 Sodium 135 L (136-145) mEq/L Potassium 4.3 (3.5-5.1) mEq/L Chloride 100 (98-107) mEq/L Carbon Dioxide 27 (23-29) mEq/L BUN 11 (8-23) mg/dL Creatinine 0.73 (0.70-1.30) mg/dL Glucose 90 (70-105) mg/dL Calcium 9.3 (8.6-10.3) mg/dL Calcium panel 02/02/19 Range/Units 05:38 Calcium 9.3 (8.6-10.3) mg/dL Phosphorus 3.0 (2.7-4.5) mg/dL Pituitary panel 02/02/19 Range/Units 05:38 Sodium 135 L (136-145) mEq/L Potassium 4.3 (3.5-5.1) mEq/L Chloride 100 (98-107) mEq/L Carbon Dioxide 27 (23-29) mEq/L BUN 11 (8-23) mg/dL Creatinine 0.73 (0.70-1.30) mg/dL Glucose 90 (70-105) mg/dL Calcium 9.3 (8.6-10.3) mg/dL Adrenal panel 02/02/19 Range/Units 05:38 Sodium 135 L (136-145) mEq/L Potassium 4.3 (3.5-5.1) mEq/L Chloride 100 (98-107) mEq/L Carbon Dioxide 27 (23-29) mEq/L BUN 11 (8-23) mg/dL Creatinine 0.73 (0.70-1.30) mg/dL Glucose 90 (70-105) mg/dL Calcium 9.3 (8.6-10.3) mg/dL - Attending Attestation I examined this patient and my medical decision-making was reviewed with the Resident Physician. I agree with the documented findings, disposition and treatment plan as described except to the extent set forth below. The patient is seen and evaluated on morning rounds with resident. He reports less pain today and would like the MORGUE LIBRARIAN discontinued and transitioned to oral pain medicine. This is completely reasonable. Bowel sounds are normal. We will start him on clear liquids today. He has not passed flatus yet Cuong Soto MD FACS
[2019-02-02] MEDS: Pantoprazole 40 MG VIAL IVP SCH (09:24)
[2019-02-02] MEDS: Lisinopril 20 MG TABLET PO SCH (09:24)
[2019-02-02] MEDS: *HR* OxyCODONE/APAP 10/325 TABLET PO PRN ×2 (12:13→19:32)
[2019-02-02] MEDS: *HR* OxyCODONE/APAP 5/325 TABLET PO PRN ×2 (14:56→23:57)
[2019-02-02] MEDS: Nicotine 21 MG PATCH.TD24 TD SCH (20:26)
[2019-02-03 01:55] LABS: Basophils % 0.3 %; Eosinophils # 0.1 K/mcL (0.0-0.6); Eosinophils % 1.1 %; Hematocrit 43.4 % (37.5-50.1); Hemoglobin 14.9 g/dL (12.9-16.9); Immature Granulocytes % 0.3 % (0-4); Lymphocytes # 1.3 K/mcL (0.6-4.6); Lymphocytes % 14.9 %; Mean Corpuscular HGB Conc 34.3 g/dL (31.6-35.5); Mean Corpuscular Hemoglobin 30.7 pg (28.0-33.3); Mean Corpuscular Volume 89.3 fL (83.0-100.0); Mean Platelet Volume 10.2 fL (9.4-12.4); Monocytes # 1.1 K/mcL (0.0-1.3); Monocytes % 11.9 %; Neutrophils # 6.3 K/mcL (1.6-8.9); Platelet Count 278 K/mcL (140-400); Red Blood Count 4.86 M/mcL (4.19-5.50); Red Cell Distribution Width 12.6 % (11.5-14.5); Segmented Neutrophils % 71.5 %
[2019-02-03 02:12] LABS: BUN/Creatinine Ratio 16 (6-26); Blood Urea Nitrogen 11 mg/dL (8-23); Calcium 9.4 mg/dL (8.6-10.3); Carbon Dioxide 27 mEq/L (23-29); Chloride 98 mEq/L (98-107); Glucose 103 mg/dL (70-105); Magnesium 1.9 mg/dL (1.6-2.6); Osmolality,Calculated 276 (280-300); Phosphorous 3.3 mg/dL (2.7-4.5); Sodium 133 mEq/L (136-145); eGFR For Non-African Americans > 60 (> 60)
[2019-02-03] MEDS: Albuterol 2.5 MG/3 ML NEBULIZER IH SCH ×4 (03:45→22:11)
[2019-02-03] MEDS: *HR* Heparin 5,000 UNIT/ML VIAL SQ SCH ×2 (05:20→17:05)
[2019-02-03] MEDS: *HR* OxyCODONE/APAP 10/325 TABLET PO PRN ×3 (05:21→22:19)
--- NOTE | 2019-02-03 07:23 | General Surgery Progress Note ---
<TylerAram Riya - Last Filed: 02/03/19 10:58> Date of Encounter: 02/03/19 Time of Encounter: 07:20 - Assessment and Plan (1) S/P colostomy takedown Current Visit: Yes Status: Acute -POD 3 for colostomy takedown 2/2 previous transverse colon resection with colostomy after colon obstruction -Appendectomy intraop as within anastomosis site -Postop cefoxitin complete -Leukocytosis trending down from 16 to 8.8 today, afebrile, hemodynamically stable -ORTHODONTIC TECHNICIAN ASSISTANT for pain control will be transitioned to PO pain meds 02/02/19 and well controlled with po -West in place for acute urinary retention postop with >1L on bladder scan, cath uop good, will dc west -IS 10x Q1H while awake -Increase time in chair, begin ambulation as tolerated -Awaiting return of bowel function, having flatulence but no BM yet -Tolerated trial of clear liquids well and will advance to softs today with additional metamucil BID -Continue pain control, antiemetics, GI and DVT prophylaxis -Probable dc tomorrow if bowel function returns and no complications arise over night (2) HTN (hypertension) Current Visit: No Status: Acute -Hx of HTN -Continue home meds Qualifiers: Hypertension type: essential hypertension Qualified Code(s): I10 - Es sential (primary) hypertension Subjective Narrative: feeling better overall. Having lots of flatulence and beginning to have feeling of BM but no BM yet after trying. Tolerated clears well, abdominal pain less with PO pain control, no n/v. Objective Vital Signs - Last 8 Hours Temp Pulse Resp BP Pulse Ox 02/03/19 07:19 97.8 F 85 17 128/76 94 02/03/19 03:46 16 94 02/03/19 03:03 98.3 F 68 16 136/81 94 Intake and Output 02/02/19 02/02/19 02/03/19 15:59 23:59 07:59 Output Total 1800 / 1800 800 / 800 Balance -1800 / -1800 -800 / -800 Output: Urine 900 / 900 Catheter 900 / 900 800 / 800 Other: Weight 63 kg Patient Weight 02/03/19 23:59 Weight 63 kg - General physical appearance well developed, well nourished, no distress - Eyes normal ocular movement - ENT normal mucosa - Neck Neck exam: trachea midline - Respiratory normal expansion, normal respiratory effort, clear to auscultation - Cardiovascular Cardiovascular exam: Present: RRR. Absent: bradycardia, tachycardia, irregular rhythm, murmurs, clicks, rubs, gallop, distant heart sounds, JVD - Abdomen Abdomen: Present: bowel sounds present, soft, tender (mild midline at incision ). Absent: distended, organomegaly, masses, guarding, rebound, rigid - Incision Incision: Present: clean and dry. Absent: draining, red, swollen, inflamed, erythema, purulent, indurated, serous, serosanguinous - Genitourinary other (west in place) - Integumentary no rash - Neurologic CN 2-12 grossly intact, normal coordination - Psychiatric speech is normal - Labs 02/03/19 01:23 02/03/19 01:23 Diabetes panel 02/03/19 Range/Units 01:23 Sodium 133 L (136-145) mEq/L Potassium 4.0 (3.5-5.1) mEq/L Chloride 98 (98-107) mEq/L Carbon Dioxide 27 (23-29) mEq/L BUN 11 (8-23) mg/dL Creatinine 0.70 (0.70-1.30) mg/dL Glucose 103 (70-105) mg/dL Calcium 9.4 (8.6-10.3) mg/dL Calcium panel 02/03/19 Range/Units 01:23 Calcium 9.4 (8.6-10.3) mg/dL Phosphorus 3.3 (2.7-4.5) mg/dL Pituitary panel 02/03/19 Range/Units 01:23 Sodium 133 L (136-145) mEq/L Potassium 4.0 (3.5-5.1) mEq/L Chloride 98 (98-107) mEq/L Carbon Dioxide 27 (23-29) mEq/L BUN 11 (8-23) mg/dL Creatinine 0.70 (0.70-1.30) mg/dL Glucose 103 (70-105) mg/dL Calcium 9.4 (8.6-10.3) mg/dL Adrenal panel 02/03/19 Range/Units 01:23 Sodium 133 L (136-145) mEq/L Potassium 4.0 (3.5-5.1) mEq/L Chloride 98 (98-107) mEq/L Carbon Dioxide 27 (23-29) mEq/L BUN 11 (8-23) mg/dL Creatinine 0.70 (0.70-1.30) mg/dL Glucose 103 (70-105) mg/dL Calcium 9.4 (8.6-10.3) mg/dL Consult Discharge Plan - Plan Referrals: Rubén Corrales MD [Primary Care Provider] - <Cuong Soto - Last Filed: 02/03/19 11:57> Date of Encounter: 02/03/19 Objective Vital Signs - Last 8 Hours Temp Pulse Resp BP Pulse Ox 02/03/19 11:11 97.5 F L 85 17 136/92 98 02/03/19 09:21 17 94 02/03/19 08:47 94 02/03/19 07:19 97.8 F 85 17 128/76 94 Intake and Output 02/02/19 02/03/19 02/03/19 23:59 07:59 15:59 Intake Total 240 / 240 Output Total 800 / 800 Balance -800 / -800 240 / 240 Intake: Oral 240 / 240 Output: Catheter 800 / 800 Other: Meal Breakfast Weight 63 kg Patient Weight 02/03/19 23:59 Weight 63 kg - Labs 02/03/19 01:23 02/03/19 01:23 Diabetes panel 02/03/19 Range/Units 01:23 Sodium 133 L (136-145) mEq/L Potassium 4.0 (3.5-5.1) mEq/L Chloride 98 (98-107) mEq/L Carbon Dioxide 27 (23-29) mEq/L BUN 11 (8-23) mg/dL Creatinine 0.70 (0.70-1.30) mg/dL Glucose 103 (70-105) mg/dL Calcium 9.4 (8.6-10.3) mg/dL Calcium panel 02/03/19 Range/Units 01:23 Calcium 9.4 (8.6-10.3) mg/dL Phosphorus 3.3 (2.7-4.5) mg/dL Pituitary panel 02/03/19 Range/Units 01:23 Sodium 133 L (136-145) mEq/L Potassium 4.0 (3.5-5.1) mEq/L Chloride 98 (98-107) mEq/L Carbon Dioxide 27 (23-29) mEq/L BUN 11 (8-23) mg/dL Creatinine 0.70 (0.70-1.30) mg/dL Glucose 103 (70-105) mg/dL Calcium 9.4 (8.6-10.3) mg/dL Adrenal panel 02/03/19 Range/Units 01:23 Sodium 133 L (136-145) mEq/L Potassium 4.0 (3.5-5.1) mEq/L Chloride 98 (98-107) mEq/L Carbon Dioxide 27 (23-29) mEq/L BUN 11 (8-23) mg/dL Creatinine 0.70 (0.70-1.30) mg/dL Glucose 103 (70-105) mg/dL Calcium 9.4 (8.6-10.3) mg/dL - Attending Attestation I examined this patient and my medical decision-making was reviewed with the Resident Physician. I agree with the documented findings, disposition and treatment plan as described except to the extent set forth below. The patient is seen and evaluated on morning rounds with resident. He is sitting comfortably at the bedside. He is passing flatus. We will advance him to regular diet. We will anticipate discharge tomorrow. He is doing very well after takedown colostomy Cuong Soto MD FACS
[2019-02-03] MEDS: Pantoprazole 40 MG VIAL IVP SCH (08:41)
[2019-02-03] MEDS: Lisinopril 20 MG TABLET PO SCH (08:43)
[2019-02-03] MEDS: *HR* OxyCODONE/APAP 5/325 TABLET PO PRN ×2 (08:44→19:44)
[2019-02-03] MEDS: Psyllium 1 PACKET POWD.PACK PO SCH ×2 (11:37→20:31)
[2019-02-03] MEDS ORDERED: MOM Conc 10 ML UD.LIQ PO ONE (15:47)
[2019-02-03] MEDS: Ondansetron 4 MG/2 ML VIAL IVP PRN (19:45)
[2019-02-03] MEDS: Nicotine 21 MG PATCH.TD24 TD SCH (20:32)
[2019-02-04] MEDS: *HR* OxyCODONE/APAP 5/325 TABLET PO PRN (03:02)
[2019-02-04] MEDS: Albuterol 2.5 MG/3 ML NEBULIZER IH SCH ×2 (03:15→10:34)
[2019-02-04] MEDS: *HR* OxyCODONE/APAP 10/325 TABLET PO PRN (06:02)
[2019-02-04] MEDS: *HR* Heparin 5,000 UNIT/ML VIAL SQ SCH (06:02)
[2019-02-04 06:27] LABS: Basophils % 0.2 %; Eosinophils % 0.2 %; Hematocrit 46.9 % (37.5-50.1); Immature Granulocytes % 0.3 % (0-4); Lymphocytes # 1.5 K/mcL (0.6-4.6); Lymphocytes % 12.6 %; Mean Corpuscular HGB Conc 35.6 g/dL (31.6-35.5); Mean Corpuscular Hemoglobin 30.8 pg (28.0-33.3); Mean Corpuscular Volume 86.4 fL (83.0-100.0); Mean Platelet Volume 10.3 fL (9.4-12.4); Monocytes # 1.2 K/mcL (0.0-1.3); Monocytes % 10.6 %; Neutrophils # 8.9 K/mcL (1.6-8.9); Platelet Count 347 K/mcL (140-400); Red Blood Count 5.43 M/mcL (4.19-5.50); Red Cell Distribution Width 12.9 % (11.5-14.5); Segmented Neutrophils % 76.1 %
[2019-02-04 06:34] LABS: Hemoglobin 16.7 g/dL (12.9-16.9)
[2019-02-04 06:50] LABS: BUN/Creatinine Ratio 26 (6-26); Blood Urea Nitrogen 22 mg/dL (8-23); Calcium 10.3 mg/dL (8.6-10.3); Carbon Dioxide 28 mEq/L (23-29); Chloride 93 mEq/L (98-107); Glucose 112 mg/dL (70-105); Magnesium 2.2 mg/dL (1.6-2.6); Osmolality,Calculated 284 (280-300); Phosphorous 4.1 mg/dL (2.7-4.5); Sodium 135 mEq/L (136-145); eGFR For Non-African Americans > 60 (> 60)
[2019-02-04] MEDS: Pantoprazole 40 MG VIAL IVP SCH (08:42)
[2019-02-04] MEDS: Lisinopril 20 MG TABLET PO SCH (08:42)
[2019-02-04] MEDS: Psyllium 1 PACKET POWD.PACK PO SCH (08:42)
[2019-02-04] MEDS: 0.9 % Sodium Chloride 1,000 ML IVC SCH (08:43)
[2019-02-04 11:36] VITALS: BP 110/74
--- NOTE | 2019-02-04 12:30 | Discharge Summary ---
<Cara Rush - Last Filed: 02/04/19 12:27> Orders not resulted at time of discharge: Pending orders 01/31/19 09:47 Surgical Pathology [PTH] Routine Date of Encounter: 02/04/19 Time of Encounter: 12:33 - Discharge Diagnosis (1) S/P colostomy takedown Priority: Primary Status: Resolved (2) COPD (chronic obstructive pulmonary disease) Priority: Secondary Status: Chronic Qualifiers: COPD type: unspecified COPD Qualified Code(s): J44.9 - Chronic obstructive pulmonary disease, unspecified (3) HTN (hypertension) Priority: Secondary Status: Chronic Qualifiers: Hypertension type: essential hypertension Qualified Code(s): I10 - Essential (primary) hypertension (4) Tobacco abuse Priority: Secondary Status: Chronic Comments: Encouraged smoking cessation (5) BMI less than 19,adult Priority: Secondary Status: Acute Comments: Encouraged Protein supplement TID General Surgery Exam Initial Vital Signs Temp Pulse Resp BP Pulse Ox 98.0 F 76 18 115/77 98 01/31/19 06:51 01/31/19 06:51 01/31/19 06:51 01/31/19 06:51 01/31/19 06:51 Vital Signs Temp Pulse Resp BP Pulse Ox 02/04/19 11:36 97.6 F 84 18 110/74 96 02/04/19 10:34 17 99 02/04/19 07:21 97.3 F L 100 18 124/85 98 02/04/19 04:31 98.2 F 96 18 122/82 94 02/04/19 03:17 18 94 02/03/19 22:08 98.0 F 110 18 131/91 95 02/03/19 21:07 95 02/03/19 18:54 97.9 F 92 16 161/80 96 02/03/19 15:49 97.8 F 91 16 158/101 97 Intake and Output 02/03/19 02/04/19 02/04/19 23:59 07:59 15:59 Intake Total 1000 / 1000 120 / 120 Balance 1000 / 1000 120 / 120 Intake: IV Fluids 1000 / 1000 Oral 120 / 120 Other: Meal Breakfast Percent of Meal Consumed 0% Stool Size Smear Stool Consistency soft Stool Characteristics Normal for Patient Stool Color Brown Blood Tinged # Voids 1 # Bowel Movements 1 VITAL SIGNS: Reviewed. See [employer] GENERAL: In no apparent distress. HEENT: Normocephalic, atraumatic, pupils are equal and reactive, extraocular motions intact, oropharynx is pink and moist, there is no neck adenopathy or JVD noted. CHEST/RESPIRATORY: The thorax is free from signs of trauma. Lung sounds: clear to auscultation, normal respiratory effort CARDIAC: Regular rate and rhythm. Normal S1 and S2, without murmurs, gallops, or rubs. VASCULAR: No Edema. 2+ peripheral pulses. ABDOMEN: soft, expected postoperative tenderness, active bowel sounds INCISION: Surgical incision is clean, dry, and intact. There are no signs of cellulitis or infection noted. MUSCULOSKELETAL: Good range of motion of all major joints. Extremities without clubbing, cyanosis or edema. NEUROLOGIC EXAM: Alert and oriented x 3. Speech normal. Follows commands. PSYCHIATRIC: Mood normal. SKIN: No rash or lesions. - Hospital Course Hospital course: Mr. Valerio is a 58 year old male who presented on 01/31/2019 and underwent takedown colostomy with handsewn anastomosis, lysis of adhesions for 30 minutes, and appendectomy by Dr. Soto. His final pathology remains pending at the time of DC. His hospital course has been uncomplicated. He is anxious for disposition today. He is ambulating avoiding without difficulty, tolerating t without nausea or vomiting, vital signs are stable, and he is afebrile. We will begin discharge planning to home with a follow-up in the office in approximately 2 weeks. Of note he takes chronic narcotics at home and had a refill of this medication and had a refill on 01/09/2019 for 60 tablets. He is advised to continue his normal dosing and take ibuprofen to supplement. Time spent discussing smoking cessation with patient: 3 to 10 minutes - Time Spent with Patient Total time spent providing and/or coordinating discharge services: - Discharge Medications Prescriptions: New Docusate Sodium [Colace] 100 mg PO BID PRN #30 capsule PRN Reason: Contstipation Polyethylene Glycol 3350 [MiraLAX Powder Bulk 17.9 Oz] 1 scoop PO DAILY 30 Days #510 gm Ondansetron ODT [Zofran ODT] 4 mg SL Q4HR PRN #15 tab.rapdis PRN Reason: Postsurgical nausea Continue RX: Oxycodone HCl/Acetaminophen [Percocet 10-325 mg Tablet] 1 tab PO BID PRN PRN Reason: Pain RX: Gabapentin [Neurontin] 600 mg PO TID RX: Amitriptyline HCl 100 mg PO HS RX: Docusate Sodium [Colace] 100 mg PO BID PRN #30 capsule PRN Reason: Constipation RX: Ibuprofen [Ibu-200] 400 mg PO DAILY PRN PRN Reason: Pain RX: Omeprazole [PriLOSEC] 40 mg PO DAILY RX: Lisinopril [Zestril] 20 mg PO DAILY Home Medications: RX: Gabapentin [Neurontin] 600 mg PO TID 01/25/17 [History] RX: Oxycodone HCl/Acetaminophen [Percocet 10-325 mg Tablet] 1 tab PO BID PRN 01/25/17 [History] RX: Lisinopril [Zestril] 20 mg PO DAILY 08/21/18 [History] RX: Amitriptyline HCl 100 mg PO HS 08/22/18 [History] RX: Docusate Sodium [Colace] 100 mg PO BID PRN #30 capsule 09/13/18 [Rx] RX: Ibuprofen [Ibu-200] 400 mg PO DAILY PRN 01/31/19 [History] RX: Omeprazole [PriLOSEC] 40 mg PO DAILY 01/31/19 [History] Docusate Sodium [Colace] 100 mg PO BID PRN #30 capsule 02/04/19 [Rx] Ondansetron ODT [Zofran ODT] 4 mg SL Q4HR PRN #15 tab.rapdis 02/04/19 [Rx] Polyethylene Glycol 3350 [MiraLAX Powder Bulk 17.9 Oz] 1 scoop PO DAILY 30 Days #510 gm 02/04/19 [Rx] Allergies/Adverse Reactions: Allergy/AdvReac Type Severity Reaction Status Date / Time naproxen [From Naprosyn] Allergy Rash Verified 01/31/19 07:45 Penicillins Allergy Hives Verified 01/31/19 07:45 tramadol Allergy Rash Verified 01/31/19 07:45 celecoxib [From Celebrex] AdvReac Nausea Verified 01/31/19 07:43 hydrocodone AdvReac Nausea Verified 01/31/19 07:43 Date of admission: 01/31/19 12:02 Primary care physician: Rubén Corrales, Discharging clinician: Cuong Rush) Anticipated date of discharge: 02/04/19 Labs on day of discharge: Labs from last 24 hours 02/04/19 02/04/19 04:25 04:25 WBC 11.7 H RBC 5.43 Hgb 16.7 D Hct 46.9 MCV 86.4 MCH 30.8 MCHC 35.6 H RDW 12.9 Plt Count 347 MPV 10.3 Immature Gran % 0.3 Seg Neutrophils % 76.1 Lymphocytes % 12.6 Monocytes % 10.6 Eosinophils % 0.2 Basophils % 0.2 Neutrophils # 8.9 Lymphocytes # 1.5 Monocytes # 1.2 Eosinophils # 0.0 Basophils # 0.0 Sodium 135 L Potassium 4.0 Chloride 93 L Carbon Dioxide 28 BUN 22 Creatinine 0.85 Est GFR ( Amer) > 60 Est GFR (Non-Af Amer) > 60 BUN/Creatinine Ratio 26 Glucose 112 H Calculated Osmolality 284 Calcium 10.3 Phosphorus 4.1 Magnesium 2.2 - Patient Status Disposition: Home, Self-Care Condition: Good Functional capacity at discharge: independent ambulation Overall status at discharge: patient is progressing back to baseline - Discharge Instructions Instructions: Open Colostomy Reversal (DC) Follow Up With: Rubén Corrales MD [Primary Care Provider] - 02/07/19 10:00 am (Please follow up as schedule...) Cara Rush CNP [Advanced Practice Nurse] - 02/12/19 1:45 pm (Please follow up as schedule...) Additional Instructions: General Surgical Discharge Instructions 1. No pushing, pulling, or lifting greater than 15 lbs for 6 weeks (depending upon procedure). 2. You may shower beginning today, but no tub baths, soaking, or swimming for 2 weeks. 3. You may resume driving when you are off narcotics and are safe to react in a car. 4. Take your at home previously prescribed oxycodone if needed for pain. May also take 600 mg of ibuprofen every 8 hours if needed for pain. Take narcotics as directed. Do not take more narcotics then directed and do not share your narcotics with any other person. Do not drink alcohol while on narcotics. 5. Take stool softeners (Colace) or a water based laxative (Miralax) while taking narcotics. You may hold for loose stools. 6. Report any fevers greater than 100.5F, increase abdominal discomfort, drainage that looks like pus, increased redness or pain at the surgical site, or any vomiting. 7. Report any pain in the calves, shortness of breath, or rapid heartbeat. 8. Follow-up in the office as directed. 9. If you were prescribed antibiotics, do not stop them without talking to your provider. - Diet and Activity Activity: increase activity as tolerated Diet: advance to your usual diet <Cuong Soto - Last Filed: 02/05/19 10:32> Orders not resulted at time of discharge: Pending orders 01/31/19 09:47 Surgical Pathology [PTH] Routine Date of Encounter: 02/04/19 General Surgery Exam Initial Vital Signs Temp Pulse Resp BP Pulse Ox 98.0 F 76 18 115/77 98 01/31/19 06:51 01/31/19 06:51 01/31/19 06:51 01/31/19 06:51 01/31/19 06:51 - Hospital Course Hospital course: Mr. Valerio is a 58 year old male - Time Spent with Patient Total time spent providing and/or coordinating discharge services: Date of admission: 01/31/19 12:02 Primary care physician: Rubén Corrales, - Attending Attestation I have personally performed a face to face evaluation on this patient. I have reviewed and agree with the care plan. History and Exam by me shows: The patient is seen and evaluated on morning rounds. He is passing flatus and bowel movement and ready for discharge. He will be seen in the office in 7-10 days in follow-up. Cuong Soto MD FACS
== END 2019-02-04 13:27 | disposition home or self-care (01) | DRG 331 ==
LOC: SAMDAY 06:17 → 3BNU 12:02 → 2ANU 02-03 22:03
PROVIDERS: ADMIT Surgery; ATTEND Surgery